=== PATIENT | male | born 1950 | race Two or more races ===

== ENCOUNTER 2017-08-31 12:48 | Inpatient (IN) | payer MEDICARE, MEDICAID ==
[~2017-08-31] VITALS: Ht 152.4 cm; Wt 68.9 kg
[2017-08-31] MEDS ORDERED: FURO-144 PO (13:28)
[2017-08-31] MEDS ORDERED: HYDR-4076 PO (13:28)
[2017-08-31] MEDS ORDERED: INSU100V3 SQ (13:28)
[2017-08-31] MEDS ORDERED: DEXT15DR6 EACHEYE (13:28)
[2017-08-31] MEDS ORDERED: ISOS30TA6 PO (13:28)
[2017-08-31] MEDS ORDERED: CARV25TA2 PO (13:28)
[2017-08-31] MEDS ORDERED: LATA2.5D2 EACHEYE (13:28)
[2017-08-31] MEDS ORDERED: BRIM5DRO EACHEYE (13:28)
[2017-08-31] MEDS ORDERED: DICY10CA59 PO (13:28)
[2017-08-31] MEDS ORDERED: ASPI81TA2 PO (13:28)
[2017-08-31] MEDS ORDERED: DORZ10DR13 EACHEYE (13:28)
[2017-08-31] MEDS ORDERED: ATOR80TA PO (13:28)
[2017-08-31] MEDS ORDERED: MULT-213 PO (13:28)
[2017-08-31] MEDS ORDERED: ACET-868 PO (13:28)
[2017-08-31] MEDS ORDERED: [UNRECOGNIZED DRUG - CODE] SQ (13:28)
[2017-08-31] MEDS ORDERED: DOCU-170 PO (13:28)
[2017-08-31] MEDS ORDERED: MAGN400O6 PO (13:28)
[2017-08-31] MEDS ORDERED: POLY119P2 PO (13:28)
[2017-08-31] MEDS ORDERED: INSU3INS6 SQ (13:28)
[2017-08-31] MEDS ORDERED: CRAN450C PO (13:28)
--- NOTE | 2017-08-31 15:03 | NUR ---
REPORT TO MAICOL KRUSE FOR CONT OF CARE
--- NOTE | 2017-08-31 15:30 | NUR ---
MS RN INITIAL NOTES PT ARRIVED TO FLOOR VIA GURNEY, FOR RESPIRATORY DISTRESS DUE TO SMOKE INHALATION. NO SIGNS OF SOB OR DISTRESS. BREATHING EVENLY AND UNLABORED ON RA. DENIES PAIN. SKIN ASSESSMENT COMPLETED. PICTURES ARE IN CHART AND DOCUMENTED. A/O X3 URUGUAYAN SPEAKING FROM SNF, ABLE TO MAKE NEEDS KNOWN. PT HAS BLINDNESS IN BOTH EYES. MED RECON COMPLETED. BED IS IN LOW AND LOCKED POSITION, CALL LIGHT IS WITHIN REACH. WILL CONTINUE TO MONITOR
[2017-08-31 15:35] VITALS: BP_SYST 152; BP_SYST 159; BP_DIAS 114; BP_DIAS 88
[2017-08-31] MEDS ORDERED: Z GUARD REMEDY 2 OZ OINT TP PRN (16:00)
[2017-08-31] MEDS ORDERED: ONDANSETRON HCL/PF 4 MG/2 ML VIAL IVP PRN (16:00)
[2017-08-31] MEDS ORDERED: ZOLPIDEM TARTRATE 5 MG TABLET PO PRN (16:00)
[2017-08-31] MEDS ORDERED: ACETAMINOPHEN 325 MG TABLET PO PRN (16:00)
[2017-08-31] MEDS ORDERED: MAGNESIUM HYDROXIDE 30 ML UDC PO PRN ×2 (16:00)
[2017-08-31] MEDS ORDERED: DEXTROSE 50%-WATER 50 ML DISP.SYRIN IV PRN (16:00)
[2017-08-31] MEDS ORDERED: DICYCLOMINE HCL 10 MG CAPSULE PO PRN (16:00)
[2017-08-31] MEDS ORDERED: MAG HYDROX/AL HYDROX/SIMETH 30 ML UDC PO PRN (16:00)
[2017-08-31] MEDS ORDERED: HYDROCODONE/APAP 5/325MG 1 EACH TABLET PO PRN (16:00)
[2017-08-31] MEDS: HEPARIN SODIUM, PORCINE 5000 UNITS/1 ML VIAL SQ SCH (17:00)
[2017-08-31] MEDS: DOCUSATE SODIUM 100 MG CAPSULE PO SCH (17:47)
[2017-08-31] MEDS: TIMOLOL MAL/DORZOLAM HCL OPHTH 10 ML BOTTLE EACHEYE SCH (17:47)
[2017-08-31] MEDS: BLOOD SUGAR DIAGNOSTIC 1 EACH STRIP VI SCH ×2 (17:47→21:53)
--- NOTE | 2017-08-31 18:10 | NUR ---
MS RN NOTES HELD HEPARIN DUE TO NO LABS
--- NOTE | 2017-08-31 18:15 | NUR ---
MS RN NOTES PAGED DR MUIR FOR LABS, AWAITING RESPONSE
--- NOTE | 2017-08-31 18:40 | NUR ---
MS RN CLOSING NOTES PT IS IN BED RESTING, NO ACUTE CHANGES. LABS TO BE DRAWN IN AM. WILL ENDORSE TO DAY SHIFT
--- NOTE | 2017-08-31 19:30 | NUR ---
MSRN FULLY AWAKE, NO RESPIRATORY DISTRESS. FAMILY VERY SUPPORTIVE, AT BEDSIDE. NO NEEDS FOR NOW. KEPT COMFORTABLE.
[2017-08-31 20:09] VITALS: BP 167/80
[2017-08-31 20:16] VITALS: BP 167/88
[2017-08-31] MEDS: BRIMONIDINE TARTRATE OPHT SOLN 5 ML BOTTLE EACHEYE SCH (21:00)
[2017-08-31] MEDS: LATANOPROST EYE DROP 0.005% 2.5 ML BOTTLE EACHEYE SCH (21:51)
[2017-08-31] MEDS: hydrALAZINE HCL 25 MG TABLET PO SCH (21:52)
[2017-08-31] MEDS: CARVEDILOL 12.5 MG TABLET PO SCH (21:52)
[2017-08-31] MEDS: ATORVASTATIN 40 MG TABLET PO SCH (21:53)
[2017-08-31] MEDS: INSULIN DETEMIR 100 UNIT/ML CARTRIDGE SQ SCH (21:54)
--- NOTE | 2017-08-31 22:33 | NUR ---
AAMIR BS 68, HELD [facility].
[2017-09-01] MEDS: BRIMONIDINE TARTRATE OPHT SOLN 5 ML BOTTLE EACHEYE SCH ×3 (05:00→22:20)
[2017-09-01] MEDS: BLOOD SUGAR DIAGNOSTIC 1 EACH STRIP VI SCH ×4 (05:47→22:23)
[2017-09-01] MEDS: hydrALAZINE HCL 25 MG TABLET PO SCH ×3 (05:50→22:22)
--- NOTE | 2017-09-01 06:00 | NUR ---
MSRN BS 75, DUE MEDS GIVEN WITH ORANGE JUICE. PATIENT MOVED TO ROOM 314-2 VIA BED.
[2017-09-01 06:40] VITALS: BP 161/82
[2017-09-01 08:00] VITALS: BP 149/73
--- NOTE | 2017-09-01 08:43 | NUR ---
RN OPENING NOTES RECEIVED PATIENT RESTING COMFORTABLY IN BED. EASILY AROUSABLE. AOX3. DENIES SOB, CP OR ANY PAIN AT THIS TIME. RESPIRATIONS EVEN AND UNLABORED. NO ACUTE DISTRESS NOTED. NO IV ACCESS. PATIENT BLIND. BED LOCKED IN THE LOWEST POSITION WITH SIDE RAILS UP X2. CALL LIGHT WITHIN REACH. WILL CONTINUE TO MONITOR ASSESS AND EDUCATE PATIENT THROUGHOUT SHIFT.
[2017-09-01] MEDS ORDERED: Medication Not On Formulary EA (Cranberry Fruit Concentrate (Cranberry) 900 MG) PO SCH (09:00)
[2017-09-01] MEDS: HEPARIN SODIUM, PORCINE 5000 UNITS/1 ML VIAL SQ SCH (09:00)
[2017-09-01] MEDS: MULTIVIT, IRON, MIN NO. 8, FA 1 TAB PO SCH (09:16)
[2017-09-01] MEDS: POLYETHYLENE GLYCOL 3350 17 GM POWD.PACK PO SCH (09:16)
[2017-09-01] MEDS: FUROSEMIDE 40 MG TABLET PO SCH (09:16)
[2017-09-01] MEDS: DOCUSATE SODIUM 100 MG CAPSULE PO SCH ×2 (09:17→18:02)
[2017-09-01] MEDS: ASPIRIN 81 MG TAB.CHEW PO SCH (09:17)
[2017-09-01] MEDS: CARVEDILOL 12.5 MG TABLET PO SCH ×2 (09:18→22:21)
[2017-09-01] MEDS: ISOSORBIDE MONONITRATE (30MG) 30 MG TAB.SR.24H PO SCH (09:18)
--- NOTE | 2017-09-01 09:23 | NUR ---
RN NOTES HEPARIN HELD. NO LABS COMPLETED.
[2017-09-01 09:59] LABS: BASOPHILS # (AUTO) 0.1 /CMM (0.0-0.2); EOSINOPHILS # (AUTO) 0.1 /CMM (0.0-0.7); EOSINOPHILS % (AUTO) 1.1 % (0.0-6.0); HEMATOCRIT 31 % (39-51); HEMOGLOBIN 9.9 g/dL (13.5-17.5); LYMPHOCYTES # (AUTO) 0.6 /CMM (0.8-4.8); MEAN CORPUSCULAR HEMOGLOBIN 32 PG (26.0-33.0); MEAN CORPUSCULAR HGB CONC 32 g/dl (31.0-36.0); MEAN CORPUSCULAR VOLUME 100 fL (80-96); MONOCYTES # (AUTO) 0.4 /CMM (0.1-1.30); MONOCYTES % (AUTO) 7.5 % (2.0-12.0); NEUTROPHILS # (AUTO) 4.6 /CMM (1.8-8.9); NEUTROPHILS % (AUTO) 79.4 % (43.0-81.0); PLATELET COUNT (AUTO) 158 /CMM (150-450); RDW COEFFICIENT OF VARIATION 15.5 (11.5-15.0); WHITE BLOOD COUNT (AUTO) 5.8 K/uL (4.3-11.0)
[2017-09-01 10:21] LABS: CALCIUM, SERUM 8.8 mg/dL (8.5-10.1); CREATININE 2.5 mg/dL (0.6-1.3); MAGNESIUM 2.2 mg/dL (1.8-2.4); PHOSPHORUS 4.2 mg/dL (2.5-4.9); POTASSIUM 4.3 mmol/L (3.5-5.1)
[2017-09-01] MEDS: TIMOLOL MAL/DORZOLAM HCL OPHTH 10 ML BOTTLE EACHEYE SCH ×2 (12:47→18:02)
--- NOTE | 2017-09-01 12:55 | NUR ---
WOUND CARE CONSULT: PT PRESENTS WITH INTACT SKIN AND SCARRING/STAINING OF SACRAL AREA. PT HAS BK STUMP. ALL SKIN PROTECTION MEASURES IN PLACE AND DISCUSSED WITH NURSING STAFF. WILL SEE PRN. HAYES IN AGREEMENT WITH PLAN OF CARE. Addendum: 09/01/17 at 1257 by MIKHAIL MORENO WNDNU Amended: Links added.
[2017-09-01] MEDS: INSULIN REGULAR, HUMAN 100 UNIT/ML 3 ML VIAL SQ PRN (13:02)
[2017-09-01 16:00] VITALS: BP 157/84
--- NOTE | 2017-09-01 19:00 | NUR ---
RN NOTES PATIENT CARE CONTINUED INTO NEXT 12 HRS.
[2017-09-01 20:00] VITALS: BP 153/77
--- NOTE | 2017-09-01 21:01 | NUR ---
RN NON ADMIN NOTES Addendum: 09/01/17 at 2101 by DELGADO HE RN URIAH NON ADMIN NOTES MEDICATION NOT BROUGHT FROM PHARMACY.
[2017-09-01] MEDS: INSULIN DETEMIR 100 UNIT/ML CARTRIDGE SQ SCH (22:00)
[2017-09-01] MEDS: ATORVASTATIN 40 MG TABLET PO SCH (22:21)
[2017-09-01] MEDS: LATANOPROST EYE DROP 0.005% 2.5 ML BOTTLE EACHEYE SCH (22:22)
--- NOTE | 2017-09-01 22:25 | NUR ---
RN NOTES BS 103. ALLAN FRANCISCO.
[2017-09-02] MEDS: HEPARIN SODIUM, PORCINE 5000 UNITS/1 ML VIAL SQ SCH ×3 (01:29→21:00)
--- NOTE | 2017-09-02 01:30 | NUR ---
RN NOTES OKAY TO GIVE HEPARIN DOSE WITHOUT PTT PER DR. SUMMERS.
[2017-09-02] MEDS: hydrALAZINE HCL 25 MG TABLET PO SCH ×3 (05:52→21:56)
[2017-09-02] MEDS: BRIMONIDINE TARTRATE OPHT SOLN 5 ML BOTTLE EACHEYE SCH ×3 (05:52→21:54)
[2017-09-02 07:13] LABS: BASOPHILS % (AUTO) 0.3 % (0.0-2.0); EOSINOPHILS % (AUTO) 0.7 % (0.0-6.0); HEMATOCRIT 31 % (39-51); HEMOGLOBIN 9.8 g/dL (13.5-17.5); LYMPHOCYTES # (AUTO) 0.7 /CMM (0.8-4.8); LYMPHOCYTES % (AUTO) 12.3 % (20.0-44.0); MEAN CORPUSCULAR HEMOGLOBIN 32 PG (26.0-33.0); MEAN CORPUSCULAR HGB CONC 32 g/dl (31.0-36.0); MEAN CORPUSCULAR VOLUME 100 fL (80-96); MONOCYTES # (AUTO) 0.4 /CMM (0.1-1.30); MONOCYTES % (AUTO) 6.9 % (2.0-12.0); NEUTROPHILS # (AUTO) 4.3 /CMM (1.8-8.9); NEUTROPHILS % (AUTO) 79.8 % (43.0-81.0); PLATELET COUNT (AUTO) 149 /CMM (150-450); RDW COEFFICIENT OF VARIATION 15.6 (11.5-15.0); RED BLOOD CELL COUNT(AUTO) 3.06 MIL/uL (4.5-6.0); WHITE BLOOD COUNT (AUTO) 5.4 K/uL (4.3-11.0)
--- NOTE | 2017-09-02 07:15 | NUR ---
RN CLOSING NOTES PATIENT RESTING COMFORTABLE IN BED. AOX3 ARABIC SPEAKING. BLIND IN BOTH EYES. NO IV ACCESS. SATURATING WELL ON RA. RESPIRATIONS EVEN AND UNLABORED. NO ACUTE DISTRESS. DENIES SOB, CP AND ANY FORM OF PAIN. ALL NEEDS MET, ALL MEDS GIVEN APPROPRIATE THROUGHOUT 24HRS. BED LOCKED IN THE LOWEST POSITION. SIDE RAILS UP X2. WILL ENDORSE TO MORNING SHIFT RN FOR SARA.
--- NOTE | 2017-09-02 07:30 | NUR ---
MS RN RECEIVED ON BED, AWAKE,ALERT,ORIENTED X2-3, NOT IN ANY FORM OF DISTRESS, RESPIRATIONS EVEN AND UNLABORED, NO SOB NOTED. LUNGS ARE CLEAR,ABDOMEN SOFT,POSITIVE BOWEL SOUNDS, DENIES PAIN A THIS TIME, INDONESIAN SPEAKING ABRIL,WILL CONTINUE TO MONITOR PATIENT.
[2017-09-02 07:33] LABS: ALBUMIN 2.5 g/dL (3.4-5.0); BILIRUBIN,TOTAL 0.5 mg/dL (0.2-1.0); CALCIUM, SERUM 8.7 mg/dL (8.5-10.1); CREATININE 2.5 mg/dL (0.6-1.3); MAGNESIUM 2.1 mg/dL (1.8-2.4); POTASSIUM 4.2 mmol/L (3.5-5.1); TOTAL PROTEIN, SERUM 5.8 g/dL (6.4-8.2)
[2017-09-02] MEDS: BLOOD SUGAR DIAGNOSTIC 1 EACH STRIP VI SCH ×4 (07:50→22:01)
[2017-09-02 08:00] VITALS: BP 159/82
--- NOTE | 2017-09-02 09:20 | NUR ---
MS RN BREAKFAST SERVED,DUE MEDS GIVEN,TOLERATWED WELL. ALL NEEDS ATTENDED.
[2017-09-02 09:47] LABS: IRON, SERUM 46 ug/dl (50-175); TOTAL IRON BINDING CAPACITY 235 ug/dl (250-450)
[2017-09-02 10:00] LABS: FERRITIN 97 ng/mL (8-388)
[2017-09-02] MEDS: MULTIVIT, IRON, MIN NO. 8, FA 1 TAB PO SCH (10:16)
[2017-09-02] MEDS: FUROSEMIDE 40 MG TABLET PO SCH (10:16)
[2017-09-02] MEDS: DOCUSATE SODIUM 100 MG CAPSULE PO SCH ×2 (10:16→17:00)
[2017-09-02] MEDS: ISOSORBIDE MONONITRATE (30MG) 30 MG TAB.SR.24H PO SCH (10:17)
[2017-09-02] MEDS: ASPIRIN 81 MG TAB.CHEW PO SCH (10:17)
[2017-09-02] MEDS: CARVEDILOL 12.5 MG TABLET PO SCH ×2 (10:18→21:57)
[2017-09-02] MEDS: POLYETHYLENE GLYCOL 3350 17 GM POWD.PACK PO SCH (10:18)
[2017-09-02] MEDS: TIMOLOL MAL/DORZOLAM HCL OPHTH 10 ML BOTTLE EACHEYE SCH ×2 (10:36→17:40)
--- NOTE | 2017-09-02 11:30 | NUR ---
MS RN WAS SEEN BY DR. JAIRO Thompson/ ORDERS MADE AND CARRIED OUT.
--- NOTE | 2017-09-02 11:50 | NUR ---
MS RN WAS SEEN BY DR. DUNN, AWAITING FOR ORDERS.
[2017-09-02 16:00] VITALS: BP 172/87
--- NOTE | 2017-09-02 17:58 | NUR ---
MS RN ON BED,NO CHANGE OF CONDITION.
[2017-09-02] MEDS: INSULIN REGULAR, HUMAN 100 UNIT/ML 3 ML VIAL SQ PRN (18:37)
--- NOTE | 2017-09-02 19:20 | NUR ---
RN OPEN NOTES RECEIVED PATIENT AWAKE IN BED WITH FAMILY AT BEDSIDE. A/O X3. NO SIGNS OF DISTRESS OR DISCOMFORT. BREATHING EVEN AND UNLABORED. NO IV ACCESS AT THIS TIME, MD AWARE. BED IN LOW LOCKED POSITION WITH SIDE RAILS X3. CALL LIGHT WITHIN REACH. WILL CONTINUE TO MONITOR.
[2017-09-02 20:00] VITALS: BP 166/83
--- NOTE | 2017-09-02 21:00 | NUR ---
RN NOTES DID NOT ADMINISTER HEPARIN 5,000 UNITS ORDERED, DUE TO LOW PLT OF 149. WILL CONTINUE TO MONITOR.
[2017-09-02] MEDS: ATORVASTATIN 40 MG TABLET PO SCH (21:53)
[2017-09-02] MEDS: LATANOPROST EYE DROP 0.005% 2.5 ML BOTTLE EACHEYE SCH (21:54)
[2017-09-02] MEDS: *INSULIN REGULAR(HUMULIN R)HUM 100 UNIT/ML VIAL SQ PRN (22:00)
[2017-09-02] MEDS ORDERED: INSULIN DETEMIR 100 UNIT/ML CARTRIDGE SQ ONE (22:34)
[2017-09-02] MEDS: INSULIN DETEMIR 100 UNIT/ML CARTRIDGE SQ SCH (23:14)
[2017-09-03 05:31] LABS: APPEARANCE,URINE CLEAR (CLEAR); BILIRUBIN,URINE NEGATIVE (NEGATIVE); BLOOD, URINE NEGATIVE Ery/uL (NEGATIVE); COLOR,URINE YELLOW (YELLOW); KETONES,URINE NEGATIVE (NEGATIVE); LEUKOCYTE ESTERASE ,URINE NEGATIVE (NEGATIVE); NITRITE, URINE NEGATIVE (NEGATIVE); PROTEIN,URINE 2+ mg/dl (NEGATIVE); UGLUCOSE TRACE mg/dL (NEGATIVE); UROBILINOGEN,URINE 0.2 EU/dL (0.2)
[2017-09-03 05:37] LABS: BACTERIA,URINE 2+ /HPF (None Seen); RBC,URINE 0-2 /HPF (0-2); SQUAMOUS EPITHELIAL CELL,UR Few /HPF (None Seen); WBC,URINE 0-2 /HPF (0-3)
[2017-09-03 05:38] LABS: CREATININE, URINE 38.1 MG/DL (30.0-125.0); URINE TOTAL PROTEIN 405.9 mg/dL (0-11.9)
[2017-09-03] MEDS: BRIMONIDINE TARTRATE OPHT SOLN 5 ML BOTTLE EACHEYE SCH ×2 (05:52→12:07)
[2017-09-03] MEDS: hydrALAZINE HCL 25 MG TABLET PO SCH ×2 (05:52→12:04)
[2017-09-03 06:14] LABS: EOSINOPHIL,URINE None Seen
[2017-09-03] MEDS: BLOOD SUGAR DIAGNOSTIC 1 EACH STRIP VI SCH ×3 (06:55→17:11)
[2017-09-03 07:41] LABS: CALCIUM, SERUM 8.8 mg/dL (8.5-10.1); CREATININE 2.5 mg/dL (0.6-1.3); POTASSIUM 4.4 mmol/L (3.5-5.1)
--- NOTE | 2017-09-03 07:42 | NUR ---
MS RN OPENING NOTES RECEIVED PT ASLEEP IN BED, AWAKENS EASILY. HOB ELEVATED. A/O X 3, SAME ABLE TO MAKE NEEDS KNOWN, DENIES PAIN OR DISCOMFORTS AT THIS TIME. ON ROOM AIR, RESPIRATION IS EVEN AND UNLABORED. BED IN LOW, LOCKED POSITION WITH SIDE-RAILS UP APPROPRIATE. CALL LIGHT WITHIN REACH. WILL CONTINUE TO MONITOR ACCORDINGLY.
--- NOTE | 2017-09-03 07:42 | NUR ---
RN CLOSING NOTES PATIENT AWAKE IN BED. A/O X3. NO SIGNS OF DISTRESS OR DISCOMFORT. BREATHING EVEN AND UNLABORED. NO IV ACCESS AT THIS TIME, MD AWARE. ALL NEEDS MET. NO SIGNIFICANT CHANGES THROUGH THE NIGHT. BED IN LOW LOCKED POSITION WITH SIDE RAILS X3. CALL LIGHT WITHIN REACH. ENDORSED TO AM SHIFT FOR SARA.
[2017-09-03 07:49] LABS: BASOPHILS % (AUTO) 0.2 % (0.0-2.0); EOSINOPHILS # (AUTO) 0.1 /CMM (0.0-0.7); EOSINOPHILS % (AUTO) 1.6 % (0.0-6.0); HEMATOCRIT 30 % (39-51); LYMPHOCYTES # (AUTO) 0.6 /CMM (0.8-4.8); LYMPHOCYTES % (AUTO) 10.7 % (20.0-44.0); MEAN CORPUSCULAR HEMOGLOBIN 33 PG (26.0-33.0); MEAN CORPUSCULAR HGB CONC 33 g/dl (31.0-36.0); MEAN CORPUSCULAR VOLUME 99 fL (80-96); MONOCYTES # (AUTO) 0.4 /CMM (0.1-1.30); MONOCYTES % (AUTO) 7.2 % (2.0-12.0); NEUTROPHILS # (AUTO) 4.6 /CMM (1.8-8.9); NEUTROPHILS % (AUTO) 80.3 % (43.0-81.0); PLATELET COUNT (AUTO) 153 /CMM (150-450); RDW COEFFICIENT OF VARIATION 15.2 (11.5-15.0); RED BLOOD CELL COUNT(AUTO) 3.06 MIL/uL (4.5-6.0); WHITE BLOOD COUNT (AUTO) 5.8 K/uL (4.3-11.0)
[2017-09-03 08:00] VITALS: BP_SYST 140; BP_SYST 142; BP_DIAS 72; BP_DIAS 81
[2017-09-03] MEDS: ASPIRIN 81 MG TAB.CHEW PO SCH (08:32)
[2017-09-03] MEDS: ISOSORBIDE MONONITRATE (30MG) 30 MG TAB.SR.24H PO SCH (08:32)
[2017-09-03] MEDS: FUROSEMIDE 40 MG TABLET PO SCH (08:33)
[2017-09-03] MEDS: CARVEDILOL 12.5 MG TABLET PO SCH (08:33)
[2017-09-03] MEDS: DOCUSATE SODIUM 100 MG CAPSULE PO SCH ×2 (08:33→17:11)
[2017-09-03] MEDS: POLYETHYLENE GLYCOL 3350 17 GM POWD.PACK PO SCH (08:33)
[2017-09-03] MEDS: MULTIVIT, IRON, MIN NO. 8, FA 1 TAB PO SCH (08:33)
[2017-09-03] MEDS: HEPARIN SODIUM, PORCINE 5000 UNITS/1 ML VIAL SQ SCH (08:34)
[2017-09-03] MEDS: TIMOLOL MAL/DORZOLAM HCL OPHTH 10 ML BOTTLE EACHEYE SCH ×2 (08:44→17:12)
[2017-09-03] MEDS: *INSULIN REGULAR(HUMULIN R)HUM 100 UNIT/ML VIAL SQ PRN (12:06)
[2017-09-03 13:25] LABS: PTH, INTACT 59 pg/mL (15-65)
[2017-09-03 16:00] VITALS: BP 151/78
--- NOTE | 2017-09-03 18:53 | NUR ---
RN DISCHARGED NOTES PATIENT DISCHARGED TO [facility] IN STABLE CONDITION. REPORT GIVEN TO CHARGE NURSE EDWARD. PT LEFT UNIT VIA GURNEY ACCOMPANIED BY EMT CREW AT 1845H. A/O X 3, NO ACUTE SIGNS OF DISTRESS NOTED ON DISCHARGED. V/S CHECKED AND RECORDED. PHOTO OF SKIN TAKEN AND FILED ON CHART. NO BELONGINGS BROUGHT WHEN HE WAS ADMITTED. HEALTH TEACHINGS GIVEN AND VERBALIZED UNDERSTANDING. MD AND CHARGE NURSE AWARE OF DISCHARGE.
[2017-09-04] MEDS ORDERED: CALC-838 PO (14:01)
[2017-09-06 08:07] LABS: *SPE ALBUMIN 2.7 g/dL (2.9-4.4); *SPE ALPHA-1-GLOBULIN 0.2 g/dL (0.0-0.4); *SPE ALPHA-2-GLOBULIN 0.6 g/dL (0.4-1.0); *SPE BETA GLOBULIN 0.7 g/dL (0.7-1.3); *SPE GLOBULIN, TOTAL 2.6 g/dL (2.2-3.9); *SPE M-SPIKE Not Observed g/dL (Not Observed); *SPEGAMMA GLOBULIN 1.1 g/dL (0.4-1.8)
== END 2017-09-03 18:52 | DRG 917 ==
LOC: ER 12:49 → EDBD 12:49 → MED 16:07
PROVIDERS: ADMIT Internal Medicine; ATTEND Internal Medicine
DX: T59.811A Toxic effect of smoke, accidental (unintentional), initial encounter (principal); J96.01 Acute respiratory failure with hypoxia; G92 Toxic encephalopathy; N17.9 Acute kidney failure, unspecified; I13.0 Hypertensive heart and chronic kidney disease with heart failure and stage 1 through stage 4 chronic kidney disease, or unspecified chronic kidney disease; J70.5 Respiratory conditions due to smoke inhalation; E11.22 Type 2 diabetes mellitus with diabetic chronic kidney disease; E78.5 Hyperlipidemia, unspecified; F03.90 Unspecified dementia, unspecified severity, without behavioral disturbance, psychotic disturbance, mood disturbance, and anxiety; I50.9 Heart failure, unspecified; N18.9 Chronic kidney disease, unspecified; N40.0 Benign prostatic hyperplasia without lower urinary tract symptoms; Z79.4 Long term (current) use of insulin; Z79.899 Other long term (current) drug therapy; Z89.512 Acquired absence of left leg below knee; Y92.129 Unspecified place in nursing home as the place of occurrence of the external cause; R53.1 Weakness; E11.51 Type 2 diabetes mellitus with diabetic peripheral angiopathy without gangrene
CPT/HCPCS: 36415; 80048-TC; 80053-TC; 81000-TC; 82306; 82570-TC; 82652; 82728-TC; 82962-TC; 83540-TC; 83735-TC; 83970; 84100-TC; 84155; 84155-TC; 84165; 84300-TC; 85025-TC; 87081-TC; 87086-TC; A4606; J1644; J1815; Z7610

== ENCOUNTER 2018-02-18 13:44 | Inpatient (IN) | payer MEDICARE, MEDICAID ==
[~2018-02-18] VITALS: Ht 152.4 cm; Wt 71.2 kg
[~2018-02-18 13:44] MED LIST: ACET-868 PO; ASPI-1169 PO; ATOR80TA PO; BRIM5DRO EACHEYE; CALC-838 PO; CARV25TA2 PO; CRAN450C PO; DEXT15DR6 EACHEYE; DICY10CA59 PO; DOCU100C36 PO; DORZ10DR13 EACHEYE; FURO-144 PO; HYDR-4076 PO; INSU100V3 SQ; INSU3INS6 SQ; ISOS30TA6 PO; LATA2.5D2 EACHEYE; MAGN400O6 PO; MULT-213 PO; POLY119P2 PO; [UNRECOGNIZED DRUG - CODE] SQ
--- NOTE | 2018-02-18 13:55 | NUR ---
[facility]IB [facility] C/O ABNORMAL LABS, ELEVAETD BUN AND CREATININE. PATIENT IS A/OX 1, BREATHING EVEN AND UNLABORED. NO SOB, NAD, VITALS STABLE. PATIENT HAS A LEFT BKA. SAFETY AND COMFORT MEASURES IN PLACE. AWAITING MD ORDERS.
[2018-02-18] MEDS ORDERED: HYDR-3974 PO (14:06)
[2018-02-18] MEDS ORDERED: MAG30ORA PO (14:06)
[2018-02-18] MEDS ORDERED: POLY15DR40 EACHEYE (14:06)
[2018-02-18] MEDS ORDERED: CHOL100044 PO (14:06)
[2018-02-18] MEDS ORDERED: LOPE2TAB25 PO (14:06)
[2018-02-18] MEDS ORDERED: ONDA4TAB10 PO (14:06)
[2018-02-18] MEDS ORDERED: BLOO-668 IN (14:07)
--- NOTE | 2018-02-18 14:30 | NUR ---
NEW IV STARTED ON RIGHT HAND, 20G. BLOOD DRAWN AND SENT TO LAB.
[2018-02-18 14:53] LABS: BASOPHILS % (AUTO) 0.6 % (0.0-2.0); EOSINOPHILS % (AUTO) 3.6 % (0.0-6.0); HEMATOCRIT 28 % (39-51); HEMOGLOBIN 9.3 g/dL (13.5-17.5); LYMPHOCYTES # (AUTO) 0.5 /CMM (0.8-4.8); LYMPHOCYTES % (AUTO) 10.5 % (20.0-44.0); MEAN CORPUSCULAR HGB CONC 33 g/dl (31.0-36.0); MEAN CORPUSCULAR VOLUME 94 fL (80-96); MONOCYTES # (AUTO) 0.3 /CMM (0.1-1.30); MONOCYTES % (AUTO) 6.9 % (2.0-12.0); NEUTROPHILS # (AUTO) 3.9 /CMM (1.8-8.9); NEUTROPHILS % (AUTO) 78.4 % (43.0-81.0); PLATELET COUNT (AUTO) 202 /CMM (150-450); RDW COEFFICIENT OF VARIATION 15.8 (11.5-15.0); RED BLOOD CELL COUNT(AUTO) 3.03 MIL/uL (4.5-6.0); WHITE BLOOD COUNT (AUTO) 4.9 K/uL (4.3-11.0)
[2018-02-18 14:59] LABS: CALCIUM, SERUM 7.8 mg/dL (8.5-10.1); CREATININE 2.7 mg/dL (0.6-1.3); POTASSIUM 4.3 mmol/L (3.5-5.1)
--- NOTE | 2018-02-18 16:06 | NUR ---
CALLED NURSING SUP. FOR TELE BED
--- NOTE | 2018-02-18 16:07 | NUR ---
[facility] PAGED, SINGER SONGWRITER
--- NOTE | 2018-02-18 16:24 | NUR ---
TELE 316-1 FOR RENAL FAILURE, ADMITTED BY
--- NOTE | 2018-02-18 16:40 | NUR ---
REPORT GIVEN TO CHIKIS GREENE FOR SARA UPON ADMISSION.
[2018-02-18 17:00] VITALS: BP 148/84
--- NOTE | 2018-02-18 17:00 | NUR ---
tele furnace fitter: admission admitted this 67 yr old male pt from [facility] with dx: chf. awake, a/ox3; legally blind, fijian speaking only with hx: left bka. imelda (greenhouse technician student) of dr. rosario made aware of polst dnr/dni status signed on 08/2017 with order of dnr/dni. noted with both arms discolorations with transparent dressing in place, but no skin tear noted when removed, handled with care. also noted with sdti on right heel, photo taken and place in charts and will defer to md. oriented to room and surroundings. tele sr=67. instructed to call for assistance. call light within reach. will continue to monitor.
--- NOTE | 2018-02-18 17:05 | NUR ---
PATIENT TRANSPORTED TO [facility] VIA ACLS PROTOCOL. RAMONA DIOP TO PROVIDE SARA.
[2018-02-18] MEDS ORDERED: ACETAMINOPHEN 325 MG TABLET PO PRN (17:30)
[2018-02-18] MEDS: BLOOD SUGAR DIAGNOSTIC 1 EACH STRIP IN SCH ×2 (17:30→21:48)
[2018-02-18] MEDS ORDERED: ZOLPIDEM TARTRATE 5 MG TABLET PO PRN (17:30)
[2018-02-18] MEDS ORDERED: Z GUARD REMEDY 2 OZ OINT TP PRN (17:30)
[2018-02-18] MEDS ORDERED: HYDROCODONE/APAP 5/325MG 1 EACH TABLET PO PRN ×2 (17:30)
[2018-02-18] MEDS: ASPIRIN 81 MG TAB.CHEW PO SCH (17:30)
[2018-02-18] MEDS: ISOSORBIDE MONONITRATE (30MG) 30 MG TAB.SR.24H PO SCH (17:30)
[2018-02-18] MEDS: CHOLECALCIFEROL 1,000 UNIT TABLET (VIT D3) PO SCH (17:30)
[2018-02-18] MEDS ORDERED: MAG HYDROX/AL HYDROX/SIMETH 30 ML UDC PO PRN ×2 (17:30)
[2018-02-18] MEDS ORDERED: DICYCLOMINE HCL 10 MG CAPSULE PO PRN (17:30)
[2018-02-18] MEDS ORDERED: ONDANSETRON HCL/PF 4 MG/2 ML VIAL IVP PRN (17:30)
[2018-02-18] MEDS ORDERED: MAGNESIUM HYDROXIDE 30 ML UDC PO PRN ×2 (17:30)
--- NOTE | 2018-02-18 17:30 | NUR ---
tele flight radio officer: notes noted with inguinal hernia and tender to touch. imelda (nonprofit financial controller student) with dr. rosario here and made aware.
[2018-02-18] MEDS ORDERED: ONDANSETRON 4 MG TAB.RAPDIS PO PRN (18:00)
[2018-02-18] MEDS: hydrALAZINE HCL 25 MG TABLET PO SCH ×2 (18:16→21:48)
[2018-02-18] MEDS: DOCUSATE SODIUM 100 MG CAPSULE PO SCH (18:17)
[2018-02-18] MEDS: ENOXAPARIN SODIUM 30 MG/0.3 ML DISP.SYRIN SQ SCH (18:22)
[2018-02-18] MEDS: TIMOLOL MAL/DORZOLAM HCL OPHTH 10 ML BOTTLE EACHEYE SCH ×2 (18:23→18:34)
--- NOTE | 2018-02-18 18:30 | NUR ---
tele digital content coordinator: notes pt voided 200 ml of giovanny colored urine using urinal per request. pt refused blood sugar check, stated, "no, no, no." needs attended. dinner ordered. tele sr=60's. call light within pt's reach and reminded prn on location.
[2018-02-18] MEDS: BRIMONIDINE TARTRATE OPHT SOLN 5 ML BOTTLE EACHEYE SCH (18:31)
--- NOTE | 2018-02-18 18:50 | NUR ---
tele system consultant: notes dinner served and being assist by insole buffer with hob elevated.
--- NOTE | 2018-02-18 18:55 | NUR ---
tele president: md visit dr. rosario at bedside and stopped the bilingual loan processor with his meal and want pt to have ct abdomen/pelvis wo stat: Reason for exam: <inguinal hernia, r/o incarceration. md wants the result called in to dr. armstrong (ironworker wire fence erector). report given to tj (rn) for continuity of care.
--- NOTE | 2018-02-18 19:03 | NUR ---
tele lab manager: notes rosina (grade recorder) called and will picking machine operator pt in 10 mins.
--- NOTE | 2018-02-18 19:45 | NUR ---
DRUG SAFETY PHYSICIAN NOTE: PATIENT RESTING IN BED, NO ACUTE DISTRESS NOTED. BREATHING EVEN AND UNLABORED, NO SOB NOTED. PATIENT BACK FROM CT WITHOUT COMPLICATION. BED LOCKED AND IN LOWEST POSITION, CALL LIGHT IN REACH. WILL CONTINUE TO MONITOR.
[2018-02-18 20:00] VITALS: BP 152/77
--- NOTE | 2018-02-18 21:10 | NUR ---
INTERNATIONAL EXCHANGE COORDINATOR NOTE: PATIENT MOVED TO ROOM 309-1, CLOSER TO NURSING STATION. NO ACUTE DISTRESS NOTED. BED LOCKED AND IN LOWEST POSITION, CALL LIGHT IN REACH. WILL CONTINUE TO MONITOR.
[2018-02-18] MEDS: LATANOPROST EYE DROP 0.005% 2.5 ML BOTTLE EACHEYE SCH (21:48)
[2018-02-18] MEDS: CARVEDILOL 12.5 MG TABLET PO SCH (21:49)
--- NOTE | 2018-02-18 22:30 | NUR ---
ORE MINER BLASTING NOTE: PATIENT BLOOD SUGAR LEVEL 185 MG/DL, PATIENT TO RECEIVE 15 UNITS OF LANTUS PER MD ORDER. NO S/S OF HYPER/HYPOGLYCEMIA NOTED. WILL CONTINUE TO MONITOR.
[2018-02-18] MEDS ORDERED: INSULIN GLARGINE, 100 UNIT/ML CARTRIDGE SQ ONE (22:38)
[2018-02-18] MEDS: INSULIN GLARGINE, 100 UNIT/ML CARTRIDGE SQ SCH (22:58)
--- NOTE | 2018-02-18 23:24 | NUR ---
RN NOTES: RECEIVED ENDORSEMENT FROM TORI FOR CONTINUITY OF CARE AT 4720.
[2018-02-19] VITALS: BP 143/76
--- NOTE | 2018-02-19 00:11 | NUR ---
RN NOTES: ASLEEP DURING NURSES ROUNDS, KEPT CALL LIGHT WITHIN EASY REACH, BED LOW AND LOCKED,ALARM ON AND FALL AND SAFETY PRECAUTION OBSERVED.
[2018-02-19] MEDS: BRIMONIDINE TARTRATE OPHT SOLN 5 ML BOTTLE EACHEYE SCH ×3 (01:45→16:56)
[2018-02-19 04:00] VITALS: BP 153/80
[2018-02-19] MEDS: hydrALAZINE HCL 25 MG TABLET PO SCH ×3 (05:12→21:44)
--- NOTE | 2018-02-19 05:20 | NUR ---
RN NOTES: BP-153/80 DUE MEDICATION GIVEN, COMPLAINED OF GENERALIZED MILD PAIN, PRN MEDICATION GIVEN PER PATIENT REQUEST, NON PHARMACOLOGIC INTERVENTION RENDERED.KEPT CALL LIGHT WITHIN EASY REACH.
[2018-02-19 06:19] LABS: BASOPHILS % (AUTO) 0.8 % (0.0-2.0); EOSINOPHILS % (AUTO) 3.8 % (0.0-6.0); HEMATOCRIT 29 % (39-51); HEMOGLOBIN 9.3 g/dL (13.5-17.5); LYMPHOCYTES # (AUTO) 0.6 /CMM (0.8-4.8); LYMPHOCYTES % (AUTO) 13.3 % (20.0-44.0); MEAN CORPUSCULAR HGB CONC 32 g/dl (31.0-36.0); MEAN CORPUSCULAR VOLUME 97 fL (80-96); MONOCYTES # (AUTO) 0.3 /CMM (0.1-1.30); MONOCYTES % (AUTO) 7.3 % (2.0-12.0); NEUTROPHILS # (AUTO) 3.3 /CMM (1.8-8.9); NEUTROPHILS % (AUTO) 74.8 % (43.0-81.0); PLATELET COUNT (AUTO) 186 /CMM (150-450); RDW COEFFICIENT OF VARIATION 16.5 (11.5-15.0); WHITE BLOOD COUNT (AUTO) 4.4 K/uL (4.3-11.0)
--- NOTE | 2018-02-19 06:25 | NUR ---
RN NOTES: ABLE TO SLEEP AND REST WELL IN THE NIGHT, MORNING CARE DONE, CLEAN AND CHANGE, BLOOD TEST DONE IN THE MORNING TO F/U RESULT,BED LOW AND LOCKED, CALL LIGHT WITHIN EASY REACH. ENDORSED FOR CONTINUITY OF CARE.
[2018-02-19 06:29] LABS: ALBUMIN 1.8 g/dL (3.4-5.0); BILIRUBIN,TOTAL 0.2 mg/dL (0.2-1.0); CALCIUM, SERUM 8.2 mg/dL (8.5-10.1); CREATININE 2.7 mg/dL (0.6-1.3); MAGNESIUM 1.7 mg/dL (1.8-2.4); PHOSPHORUS 3.3 mg/dL (2.5-4.9); POTASSIUM 4.1 mmol/L (3.5-5.1); TOTAL PROTEIN, SERUM 5.4 g/dL (6.4-8.2)
--- NOTE | 2018-02-19 07:00 | NUR ---
MAP AND CHART MOUNTER INITIAL NOTES: Received patient on bed with HOB elevated, asleep, but easily arousable. No SOB, no acute distress noted. IV on R hand g#20 SL. Alert/ Oriented x 4. No complaints of discomfort or pain as of this time. Call boyd within patient's reach. Bed in low/locked position. Patient in stable condition as endoresed by mini shifter RN. Addendum: 02/19/18 at 0754 by TRINH JEWELL RN Patient on TELE monitor [id number]
[2018-02-19 08:00] VITALS: BP 146/76
[2018-02-19] MEDS: TIMOLOL MAL/DORZOLAM HCL OPHTH 10 ML BOTTLE EACHEYE SCH ×2 (08:13→16:35)
[2018-02-19] MEDS: DOCUSATE SODIUM 100 MG CAPSULE PO SCH ×2 (08:13→16:35)
[2018-02-19] MEDS: ASPIRIN 81 MG TAB.CHEW PO SCH (08:13)
[2018-02-19] MEDS: CARVEDILOL 12.5 MG TABLET PO SCH ×2 (08:14→20:37)
[2018-02-19] MEDS: CHOLECALCIFEROL 1,000 UNIT TABLET (VIT D3) PO SCH (08:14)
[2018-02-19] MEDS: ISOSORBIDE MONONITRATE (30MG) 30 MG TAB.SR.24H PO SCH (08:15)
[2018-02-19] MEDS: BLOOD SUGAR DIAGNOSTIC 1 EACH STRIP IN SCH ×2 (08:25→21:40)
[2018-02-19] MEDS: Magnesium 1GM/D5W 100ML PREMIX 100 ML IV SCH ×2 (09:21→10:41)
[2018-02-19 10:05] LABS: IRON, SERUM 48 ug/dl (50-175); TOTAL IRON BINDING CAPACITY 184 ug/dl (250-450)
[2018-02-19 16:00] VITALS: BP 131/74
--- NOTE | 2018-02-19 19:17 | NUR ---
ms rn closing notes All needs provided, attended, and anticipated. Patient in stable condition. Endorsed to next shift RN to continue care. Call light with in patient reach.
--- NOTE | 2018-02-19 19:45 | NUR ---
RN MS OPENING NOTES RECEIVED PATIENT IN BED SLEEPING , BUT EASILY AROUSABLE, RESPIRATIONS EVEN AND UNLABORED WITH EQUAL RISE AND FALL OF CHEST, DENIES ANY PAIN OR DISCOMFORT AT THIS TIME, ORIENTED TO STAFF AND CALL LIGHT IN ALBANIAN , IV SITE TO RIGHT HAND #20 GAUGE INTACT AND PATENT , NO REDNESS, NO INFILTRATION PRESENT. CALL LIGHT KEPT WITHIN REACH. BED IN LOW POSITION , LOCKED, CALL ALARM INTACT, URINAL WITHIN REACH. FALL PRECAUTIONS IN PLACE, SAFETY MEASURES IN PLACE, FLUIDS OFFERED, ALL NEEDS ATTENDED AT THIS TIME, PATIENT REMAINS COMFORTABLE WILL CONTINUE TO MONITOR.
[2018-02-19 20:00] VITALS: BP 139/62
[2018-02-19] MEDS: ENOXAPARIN SODIUM 30 MG/0.3 ML DISP.SYRIN SQ SCH (20:39)
[2018-02-19] MEDS: LATANOPROST EYE DROP 0.005% 2.5 ML BOTTLE EACHEYE SCH (21:41)
[2018-02-19] MEDS: ATORVASTATIN 40 MG TABLET PO SCH (21:41)
[2018-02-19] MEDS: INSULIN GLARGINE, 100 UNIT/ML CARTRIDGE SQ SCH (21:54)
--- NOTE | 2018-02-19 21:55 | NUR ---
RN MS NOTES PATIENT REFUSED TOSHIA BS 107. STATING BLOOD SUGAR WILL DROP. FAMILY AT BEDSIDE ALSO REFUSING STATING " WE DONT WANT IT TO DROP, DONT GIVE IT"
[2018-02-20] MEDS: BRIMONIDINE TARTRATE OPHT SOLN 5 ML BOTTLE EACHEYE SCH ×3 (01:26→16:23)
[2018-02-20] MEDS: hydrALAZINE HCL 25 MG TABLET PO SCH ×3 (05:16→21:28)
--- NOTE | 2018-02-20 06:17 | NUR ---
RN MS NOTES PATIENT WEIGHED WITH BED SCALE. ALL PILLOWS AND EXTRA SHEETS REMOVED, SPR MOTOR REMOVED NOTED BED SCALE WEIGHT 158
--- NOTE | 2018-02-20 06:56 | NUR ---
RN MS CLOSING NOTES PATIENT IN BED SLEEPING , BUT EASILY AROUSABLE, RESPIRATIONS EVEN AND UNLABORED WITH EQUAL RISE AND FALL OF CHEST, DENIES ANY PAIN OR DISCOMFORT AT THIS TIME, IV SITE TO RIGHT HAND #20 GAUGE INTACT AND PATENT , NO REDNESS, NO INFILTRATION PRESENT. LEFT BKA SKIN INTACT REPOSITIONED, RIGHT HEEL DTI INTACT MEPILEX PLACED AND INTACT, SACRAL REDNESS INTACT MEPILEX AND Z GUARD PLACED AND INTACT, BUE NOTED WITH DISCOLORATIONS SKIN INTACT, CALL LIGHT KEPT WITHIN REACH. BED IN LOW POSITION , LOCKED, CALL ALARM INTACT, URINAL WITHIN REACH. FALL PRECAUTIONS IN PLACE, SAFETY MEASURES IN PLACE, FLUIDS OFFERED, ALL NEEDS ATTENDED AT THIS TIME, PATIENT REMAINS COMFORTABLE WILL CONTINUE TO MONITOR AND ENDORSE TO NEXT SHIFT.
--- NOTE | 2018-02-20 07:20 | NUR ---
RN OPEN NOTES RECEIVED REPORT AT BEDSIDE. PATIENT IS IN BED, ALERT AND ORIENTED TO NAME, TIME AND PLACE. NO SIGNS AND SYMPTOMS OF DISTRESS. DENIED PAIN. BED IN LOW POSITION, LOCKED AND TWO SIDE RAILS ARE UP. WOUND RN CONSULT PENDING. CALL LIGHT WITHIN REACH FOR SAFETY. WILL CONTINUE TO MONITOR AND ASSESS PATIENT THROUGH OUT MY SHIFT
[2018-02-20 08:00] VITALS: BP 139/74
[2018-02-20] MEDS: CHOLECALCIFEROL 1,000 UNIT TABLET (VIT D3) PO SCH (08:42)
[2018-02-20] MEDS: DOCUSATE SODIUM 100 MG CAPSULE PO SCH ×2 (08:42→16:23)
[2018-02-20] MEDS: ISOSORBIDE MONONITRATE (30MG) 30 MG TAB.SR.24H PO SCH (08:42)
[2018-02-20] MEDS: ASPIRIN 81 MG TAB.CHEW PO SCH (08:42)
[2018-02-20] MEDS: CARVEDILOL 12.5 MG TABLET PO SCH ×2 (08:43→21:28)
[2018-02-20] MEDS: BLOOD SUGAR DIAGNOSTIC 1 EACH STRIP IN SCH ×2 (08:44→21:00)
[2018-02-20] MEDS: TIMOLOL MAL/DORZOLAM HCL OPHTH 10 ML BOTTLE EACHEYE SCH ×2 (08:46→16:01)
--- NOTE | 2018-02-20 09:00 | NUR ---
BED SCALE SHOWS DIFFERENT WEIGHT FROM PREVIOUS DOCUMENTATION.
--- NOTE | 2018-02-20 09:00 | NUR ---
PATIENT REFUSING BLOOD SUGAR CHECK - DOES NOT WANT TO GET STICK
--- NOTE | 2018-02-20 10:05 | NUR ---
PATIENT REFUSING BLOOD DRAWN
--- NOTE | 2018-02-20 18:37 | NUR ---
RN CLOSING NOTES: PATIENT IS IN BED. AWAKE, ALERT AND ORIENTED TO NAME, PLACE AND TIME. RESPIRATIONS EVEN AND UNLABORED WITH EQUAL RISE AND FALL OF CHEST. NO SIGNS AND SYMPTOMS OF DISTRESS. DENIED PAIN. LEGALLY BLIND BOTH EYES. TOTAL ASSIST. CAN TURN HIM SELF IN BED INDEPENDENTLY. IV SITE IS INTACT AND PATENT - HL ONLY, NO REDNESS , NO INFILTRATION PRESENT. BED IN LOWEST POSITION, LOCKED AND TWO SIDE RAILS ARE UP FOR SAFETY. CALL LIGHT WITHIN REACH FOR SAFETY. ALL NURSING CARE ANTICIPATED AND ATTENDED FOR. PATIENT KEPT CLEAN, DRY AND SAFE. URINAL AT BEDSIDE PERINEAL CARE PROVIDED. BED LINENS AND GOWN CHANGED. PT ABLE TO SELF REPOSITION. FALL PRECAUTIONS IN PLACE, SAFETY MEASURES IN PLACE, FLUIDS OFFERED TOLERATED. WILL ENDORSE TO ELECTRIC MELT OPERATOR RN FOR SARA.
--- NOTE | 2018-02-20 19:20 | NUR ---
RN INITIAL NOTES: RECEIVED REPORT FROM MITRA KRUSE, PT IN BED, AWAKE, A/O X3 ANGOLAN SPEAKING, ON RA RESPIRATION EVEN AND UNLABORED. PT C/O FEELING SORE ON ARMS AND LEFT BKA STUMP, NOTED TO BE SWOLLEN. PT IV ACCESS PATENT AND FLUSHING WELL, NOTED DRIED BLOOD AROUND DRESSING, PT REFUSING TO BE POKE AGAIN AND REFUSING FOR BLOOD DRAW, MD AWARE, ACCU CHECK WILL ONLY BE DONE ONCE PER SHIFT. RLE ELEVATED ON PILLOWS. PT LEGALLY BLIND BOTH EYES, 2 URINALS PLACED WITHIN REACH, ALSO PT REQUESTED FOR DIAPER HE STATED THAT HE FELT UNCOMFORTABLE NOT HAVING ANY UNDERWEAR OR DIAPER, TRANSLATED ANGOLAN SPORTS MEDICINE SPECIALIST. SAFETY PRECAUTIONS FOR FALL INITIATED, CALL LIGHT IN REACH, WILL CONTINUE MONITORING PT.
[2018-02-20 20:00] VITALS: BP 168/88
[2018-02-20] MEDS: ENOXAPARIN SODIUM 30 MG/0.3 ML DISP.SYRIN SQ SCH (21:00)
[2018-02-20 21:25] VITALS: BP 176/96
[2018-02-20] MEDS: ATORVASTATIN 40 MG TABLET PO SCH (21:29)
[2018-02-20] MEDS: LATANOPROST EYE DROP 0.005% 2.5 ML BOTTLE EACHEYE SCH (21:31)
[2018-02-20] MEDS: INSULIN GLARGINE, 100 UNIT/ML CARTRIDGE SQ SCH (21:55)
--- NOTE | 2018-02-20 21:55 | NUR ---
REFUSAL FOR BLOOD SUGAR CHECK, LOVENOX: INFORMED PT ABOUT BLOOD SUGAR CHECK, PT REFUSED, STATED HE'S FINGERS AREA FEELING SORE, AND HE DOESNT WANT ANY BLOOD SUGAR CHECK, SOLA INFORMED ABOUT LOVENOX SCHEDULED FOR TONIGHT BUT PT ALSO REFUSED, STATED HE ALREADY RECEIVED IT AND DOESNT WANT ANOTHER ONE. EXPLAINED TO THE PT IMPORTANCE OF MEDICATION COMPLIANCE, BLOOD SUGAR CHECK SINCE HE'S DIABETIC AND LOVENOX TO HELP PREVENT BLOOD CLOT FORMATION, RISK AND BENEFITS BUT PT INSISTED TO REFUSED WITH THE TREATMENT. SHARAN OZUNA WHO CAN SPEAK AND UNDERSTAND UZBEK WAS THERE TO TRANSLATE AND BETHE WITNESS. SINCE PT REFUSING BLOOD SUGAR CHECK, I DIDNT GIVE THE LANTUS I DO NOT KNOW WHAT IS THE BLOOD SUGAR OF THE PT. ALSO, APPLE JUICE AND CRANBERRY JUICE WAS PROVIDED TO THE PT, DRINK THE JUICE 100%.
[2018-02-20 23:00] VITALS: BP 146/85
[2018-02-21] MEDS: BRIMONIDINE TARTRATE OPHT SOLN 5 ML BOTTLE EACHEYE SCH ×3 (02:07→17:30)
[2018-02-21] MEDS: hydrALAZINE HCL 25 MG TABLET PO SCH ×3 (05:00→17:20)
[2018-02-21 05:14] VITALS: BP_SYST 92; BP_DIAS 62; BP_DIAS 66
--- NOTE | 2018-02-21 05:16 | NUR ---
NON ADMIN OF HYDRALAZINE 75 MG TAB: VS TAKEN AND RECORDED, BP 92/66 HR 62, PLEASE SEE VS LOG FOR INFO, APRESOLINE 75MG TAB NOT ADMINISTERED AT THIS TIME, PER CLINICAL JUDGMENT, POSSIBLE RISK OF HYPOTENSION
--- NOTE | 2018-02-21 06:44 | NUR ---
RN CLOSING NOTES: PT IN BED,AWAKE, REMAINS ON RA RESPIRATION EVEN AND UNLABORED. PT REFUSED BLOOD DRAW AND ACCU CHECK.VS REMAINS STABLE, BUE AND BLE OFFLOADED. REFUSED IV REINSERTION. SAFETY PRECAUTIONS FOR FALL REMAINS ENGAGED, CALL LIGHT IN REACH, WILL ENDORSE TO DAY RN FOR SARA.
--- NOTE | 2018-02-21 07:31 | NUR ---
RN OPENING NOTES RECEIVED PT. PT IS STABLE AND RESTING IN BED. NO S/S OF RESP DISTRESS OR SOB, PT IS ON RA. DOES NOT APPEAR TO BE IN PAIN AT THIS TIME. PER BLADE GRINDER REPORT, PT HAS REFUSED ALL TX THAT INVOLVE NEEDLESTICKS, INCLUDING ROUTINE ACCUCHECK, WILL F/U WITH . SAFETY MEASURES IN PLACE, CALL LIGHT WITHIN REACH. WILL CONTINUE TO MONITOR.
[2018-02-21 08:00] VITALS: BP 153/86
[2018-02-21 09:00] VITALS: BP 153/86
[2018-02-21] MEDS: CHOLECALCIFEROL 1,000 UNIT TABLET (VIT D3) PO SCH (09:03)
[2018-02-21] MEDS: ASPIRIN 81 MG TAB.CHEW PO SCH (09:03)
[2018-02-21] MEDS: ISOSORBIDE MONONITRATE (30MG) 30 MG TAB.SR.24H PO SCH (09:03)
[2018-02-21] MEDS: TIMOLOL MAL/DORZOLAM HCL OPHTH 10 ML BOTTLE EACHEYE SCH ×2 (09:03→17:00)
[2018-02-21] MEDS: CARVEDILOL 12.5 MG TABLET PO SCH (09:04)
[2018-02-21] MEDS: DOCUSATE SODIUM 100 MG CAPSULE PO SCH ×2 (09:04→17:00)
[2018-02-21] MEDS: BLOOD SUGAR DIAGNOSTIC 1 EACH STRIP IN SCH (09:17)
[2018-02-21 15:13] LABS: BASOPHILS % (AUTO) 0.9 % (0.0-2.0); EOSINOPHILS % (AUTO) 2.5 % (0.0-6.0); HEMATOCRIT 27 % (39-51); LYMPHOCYTES # (AUTO) 0.8 /CMM (0.8-4.8); LYMPHOCYTES % (AUTO) 15.8 % (20.0-44.0); MEAN CORPUSCULAR HGB CONC 33 g/dl (31.0-36.0); MEAN CORPUSCULAR VOLUME 94 fL (80-96); MONOCYTES # (AUTO) 0.4 /CMM (0.1-1.30); MONOCYTES % (AUTO) 8.7 % (2.0-12.0); NEUTROPHILS # (AUTO) 3.6 /CMM (1.8-8.9); NEUTROPHILS % (AUTO) 72.1 % (43.0-81.0); PLATELET COUNT (AUTO) 197 /CMM (150-450); RDW COEFFICIENT OF VARIATION 16.7 (11.5-15.0); WHITE BLOOD COUNT (AUTO) 4.9 K/uL (4.3-11.0)
[2018-02-21 15:40] LABS: CALCIUM, SERUM 8.1 mg/dL (8.5-10.1); CREATININE 2.7 mg/dL (0.6-1.3); POTASSIUM 4.2 mmol/L (3.5-5.1)
[2018-02-21 16:08] VITALS: BP 162/87
[2018-02-21] MEDS ORDERED: HYDR100T27 PO (16:14)
[2018-02-21] MEDS ORDERED: HYDR-4077 PO (16:19)
[2018-02-21] MEDS ORDERED: LOSA25TA13 PO (16:19)
[2018-02-21 17:20] VITALS: BP 162/87
--- NOTE | 2018-02-21 17:24 | NUR ---
RN NOTES PT APPEARS UPSET. CURRENTLY REFUSING WOUND PHOTO DOCUMENTATION, STATING IN AMHARIC "I JUST WANT TO LEAVE".
--- NOTE | 2018-02-21 18:00 | NUR ---
DISCHARGE NOTE PT DISCHARGED TO [facility]. VSS, NO S/S OF PAIN OR RESP DISTRESS. BOTH ID BAND AND IV ACCESS REMOVED. PT TEACHING PERFORMED REGARDING CHF AND CHF EXACERBATION. MED RECON INCLUDED WITH EXIT CARE. PT UNABLE TO SIGN D/C PAPERWORK AND BELONGINGS LIST. IN ADDITION, PT REFUSES WOUND PHOTO DOCUMENTATION. REPORT GIVEN TO RAPHAEL AT [facility]. PT LEFT HOSPITAL IN AMBULANCE WITH PARAMEDICS.
== END 2018-02-21 18:15 | DRG 291 ==
LOC: ER 13:46 → TELE 16:49 → MED 02-19 09:32
PROVIDERS: ADMIT Internal Medicine; ATTEND Internal Medicine
DX: I13.0 Hypertensive heart and chronic kidney disease with heart failure and stage 1 through stage 4 chronic kidney disease, or unspecified chronic kidney disease (principal); I50.33 Acute on chronic diastolic (congestive) heart failure; J90 Pleural effusion, not elsewhere classified; E11.22 Type 2 diabetes mellitus with diabetic chronic kidney disease; N18.4 Chronic kidney disease, stage 4 (severe); F03.90 Unspecified dementia, unspecified severity, without behavioral disturbance, psychotic disturbance, mood disturbance, and anxiety; E78.5 Hyperlipidemia, unspecified; Z90.49 Acquired absence of other specified parts of digestive tract; D64.9 Anemia, unspecified; Z89.512 Acquired absence of left leg below knee; E11.65 Type 2 diabetes mellitus with hyperglycemia; Z79.4 Long term (current) use of insulin; E11.51 Type 2 diabetes mellitus with diabetic peripheral angiopathy without gangrene; H40.9 Unspecified glaucoma; H54.7 Unspecified visual loss
CPT/HCPCS: 36415; 71045-TC; 80048-TC; 80053-TC; 80061-TC; 82962-TC; 83540-TC; 83735-TC; 84100-TC; 84484-TC; 85025-TC; 85730-TC; 87081-TC; 93307-TC; A4606; J1650; J1815; J3475; J7050; Z7610

== ENCOUNTER 2018-03-10 12:43 | Inpatient (IN) | payer MEDICARE, MEDICAID ==
[~2018-03-10] VITALS: Ht 175.3 cm; Wt 67.3 kg
[~2018-03-10 12:43] MED LIST changes: +BLOO-668 IN; -CALC-838 PO; +CHOL100044 PO; -CRAN450C PO; -DEXT15DR6 EACHEYE; +HYDR-3974 PO; -HYDR-4076 PO; +HYDR-4077 PO; -INSU100V3 SQ; +LOPE2TAB25 PO; +LOSA25TA13 PO; +MAG30ORA PO; +ONDA4TAB10 PO; +POLY15DR40 EACHEYE; -[UNRECOGNIZED DRUG - CODE] SQ
--- NOTE | 2018-03-10 13:06 | NUR ---
XRAY TCH AT BS
--- NOTE | 2018-03-10 13:06 | NUR ---
PATIENT TO ED, SENT BY MD VERNON ESTRADA FROM LAY DT GENERALIZED EDEMA. PATIENT IS AWAKE AND ALERT, NOT IN DISTRESS, NO SOB, NO CHEST PAIN, AFEBRILE. VSS
[2018-03-10 13:09] LABS: BASOPHILS % (AUTO) 0.3 % (0.0-2.0); EOSINOPHILS % (AUTO) 2.5 % (0.0-6.0); HEMATOCRIT 27 % (39-51); HEMOGLOBIN 8.8 g/dL (13.5-17.5); LYMPHOCYTES # (AUTO) 0.6 /CMM (0.8-4.8); LYMPHOCYTES % (AUTO) 11.5 % (20.0-44.0); MEAN CORPUSCULAR HGB CONC 32 g/dl (31.0-36.0); MEAN CORPUSCULAR VOLUME 99 fL (80-96); MONOCYTES # (AUTO) 0.4 /CMM (0.1-1.30); NEUTROPHILS # (AUTO) 4.3 /CMM (1.8-8.9); NEUTROPHILS % (AUTO) 78.7 % (43.0-81.0); PLATELET COUNT (AUTO) 174 /CMM (150-450); RDW COEFFICIENT OF VARIATION 17.9 (11.5-15.0); RED BLOOD CELL COUNT(AUTO) 2.76 MIL/uL (4.5-6.0); WHITE BLOOD COUNT (AUTO) 5.5 K/uL (4.3-11.0)
[2018-03-10 13:24] LABS: INR 1.03 (0.85-1.15)
[2018-03-10 13:26] LABS: ALBUMIN 2.2 g/dL (3.4-5.0); BILIRUBIN,DIRECT 0.1 mg/dL (0.0-0.2); BILIRUBIN,TOTAL 0.3 mg/dL (0.2-1.0); CALCIUM, SERUM 8.8 mg/dL (8.5-10.1); CREATININE 3.8 mg/dL (0.6-1.3); POTASSIUM 5.6 mmol/L (3.5-5.1); TOTAL PROTEIN, SERUM 5.9 g/dL (6.4-8.2)
[2018-03-10 13:28] LABS: TROPONIN I 0.058 ng/mL (0.00-0.056)
[2018-03-10] MEDS ORDERED: LOSA25TA13 PO (13:53)
[2018-03-10] MEDS ORDERED: HYDR-4076 PO (13:53)
[2018-03-10] MEDS ORDERED: MAGN400T26 PO (13:53)
[2018-03-10] MEDS ORDERED: BROM1.7D9 EACHEYE (13:53)
[2018-03-10] MEDS ORDERED: TIMO5DRO35 EACHEYE (13:53)
[2018-03-10] MEDS ORDERED: INSU100V3 SQ (13:53)
--- NOTE | 2018-03-10 14:40 | NUR ---
SMITH PAGED, AMY SMITH TRANSPORTATION LOGISTICS INTERNSHIP REAL ESTATE ANALYST
--- NOTE | 2018-03-10 14:47 | NUR ---
TELE 307-1 MAICOL FOR ACUTE RENAL FAILURE, AMY SMITH NP ADMITTING
--- NOTE | 2018-03-10 15:02 | NUR ---
REPORT GIVEN TO URIAH MILIAN FOR SARA TELE 307-2
--- NOTE | 2018-03-10 15:03 | NUR ---
RN NOTE REPORT RECEIVED BY SHAE STAHL RN
--- NOTE | 2018-03-10 15:15 | NUR ---
MORTAR WORKERPATRON ATTENDANT NOTE RECEIVED REPORT FOR PATIENT FROM ER. PATIENT IS FROM [facility] BROUGHT IN FOR BILATERAL UPPER EXTREMITY SWELLING AND RIGHT LOWER LEG SWELLING. PATIENT IS ALERT AND ORIENTED x4. JAPANESE SPEAKING. RIGHT AC 18G INTACT AND PATENT. SKIN ISSUES DOCUMENTED AND PLACED IN CHART. NO KNOWN ALLERGIES NOTED. CALL LIGHT WITHIN REACH AND SAFETY MEASURES IMPLEMENTED. ON ROOM AIR TOLERATING WELL AT 96%. AWAITING MD ORDERS AT THIS TIME. WILL CONTINUE TO MONITOR THROUGHOUT SHIFT.
[2018-03-10] MEDS ORDERED: DEXTROSE 50%-WATER 50 ML DISP.SYRIN IV PRN (15:30)
[2018-03-10] MEDS ORDERED: LOPERAMIDE HCL (2 MG CAP) 2 MG CAPSULE PO PRN (15:30)
[2018-03-10] MEDS ORDERED: ACETAMINOPHEN 325 MG TABLET PO PRN (15:30)
[2018-03-10] MEDS ORDERED: ONDANSETRON 4 MG TAB.RAPDIS PO PRN (15:30)
[2018-03-10] MEDS ORDERED: MAGNESIUM HYDROXIDE 30 ML UDC PO PRN (15:30)
[2018-03-10] MEDS ORDERED: MAG HYDROX/AL HYDROX/SIMETH 30 ML UDC PO PRN (15:30)
[2018-03-10] MEDS ORDERED: DICYCLOMINE HCL 10 MG CAPSULE PO PRN (15:30)
[2018-03-10 16:00] VITALS: BP 136/74
--- NOTE | 2018-03-10 16:00 | NUR ---
SENIOR APPLICATION SECURITY CONSULTANT NOTE INFORMED MD ABOUT PATIENT'S POTASSIUM-5.6. AWAITING CALL BACK
[2018-03-10] MEDS: POLYETHYLENE GLYCOL 3350 17 GM POWD.PACK PO SCH (17:00)
[2018-03-10] MEDS: DOCUSATE SODIUM 100 MG CAPSULE PO SCH (17:00)
[2018-03-10] MEDS: TIMOLOL 0.5% SOLN OPHTH 5 ML BOTTLE EACHEYE SCH (17:00)
[2018-03-10] MEDS: POLYVINYL ALCOHOL 15 ML BOTTLE EACHEYE SCH (17:00)
[2018-03-10] MEDS: TIMOLOL MAL/DORZOLAM HCL OPHTH 10 ML BOTTLE EACHEYE SCH (17:00)
[2018-03-10] MEDS ORDERED: FUROSEMIDE 40 MG/4 ML VIAL IV SCH (17:00)
[2018-03-10] MEDS: BLOOD SUGAR DIAGNOSTIC 1 EACH STRIP VI SCH ×2 (17:05→21:37)
[2018-03-10] MEDS: MAGNESIUM OXIDE 400 MG TABLET PO SCH (17:10)
[2018-03-10] MEDS: INSULIN REGULAR, HUMAN 100 UNIT/ML 3 ML VIAL SQ PRN (17:28)
--- NOTE | 2018-03-10 18:27 | NUR ---
WOUND CARE TECHNICIAN CLOSING NOTE PATIENT IS RESTING COMFORTABLY IN BED AT THIS TIME. NO FACIAL GRIMACING NOTED FOR PAIN. NO SOB OR DISTRESS NOTED. CALL LIGHT WITHIN REACH AT ALL TIMES. SAFETY MEASURES IMPLEMENTED. ABLE TO COMMUNICATE NEEDS. IV INTACT AND PATENT NO REDNESS OR SWELLING NOTED. ALL DUE MEDICATIONS GIVEN ORDERED. ALL NURSING CARE NEEDS ATTENDED TO NEEDED. BLOOD SUGAR MONITORED AND INSULIN GIVEN NEEDED. WILL ENDORSE TO DONKEY DOCTOR NURSE FOR SARA Addendum: 03/10/18 at 1830 by MAICOL MARTINEZ RN TELE-SR 60s
--- NOTE | 2018-03-10 19:12 | NUR ---
rn note md aware of patient's potassium no new orders at this time. endorsed to manufacturing shift supervisor nurse
[2018-03-10 20:00] VITALS: BP 106/57
--- NOTE | 2018-03-10 20:00 | NUR ---
RN NOTES RECEIVED PATIENT IN BED, ALERT AND ORIENTED X3, CALM, NO SOB, ON ROOM AIR, SPO2 98%, DENIES ANY PAIN AT THIS TIME, TAMAZIGHT SPEAKING ONLY, ON FLUID RESTRICTION DUE TO ACUTE RENAL FAILURE, NOTED BUE AND RIGHT LOWER EXT EDEMA, LEFT BKA, ON TELE MONITOR, SB 59, FALL PRECAUTION, WILL CONTINUE TO MONITOR, CALL LIGHT WITHIN REACH.
[2018-03-10 20:17] VITALS: BP 106/57
[2018-03-10] MEDS: BRIMONIDINE TARTRATE OPHT SOLN 5 ML BOTTLE EACHEYE SCH (20:48)
[2018-03-10] MEDS: hydrALAZINE HCL 25 MG TABLET PO SCH (20:49)
--- NOTE | 2018-03-10 20:50 | NUR ---
RN NOTES HYDRALAZINE AND COREG HELD, BP LOW 100/67 HR 56
[2018-03-10] MEDS ORDERED: CARVEDILOL 12.5 MG TABLET PO SCH (21:00)
[2018-03-10] MEDS: LATANOPROST EYE DROP 0.005% 2.5 ML BOTTLE EACHEYE SCH (21:37)
[2018-03-10] MEDS: INSULIN GLARGINE, 100 UNIT/ML CARTRIDGE SQ SCH (21:46)
[2018-03-10] MEDS: *INSULIN REGULAR(HUMULIN R)HUM 100 UNIT/ML VIAL SQ PRN (21:47)
[2018-03-10] MEDS: ATORVASTATIN 40 MG TABLET PO SCH (21:51)
[2018-03-10 22:00] VITALS: BP 100/67
[2018-03-11] VITALS (7 sets, daily range): BP systolic 93–140; BP diastolic 50–71
[2018-03-11] MEDS: BRIMONIDINE TARTRATE OPHT SOLN 5 ML BOTTLE EACHEYE SCH ×3 (04:41→22:31)
[2018-03-11] MEDS: hydrALAZINE HCL 25 MG TABLET PO SCH ×3 (04:54→22:29)
[2018-03-11] MEDS: BLOOD SUGAR DIAGNOSTIC 1 EACH STRIP VI SCH ×4 (06:37→22:30)
[2018-03-11] MEDS: FUROSEMIDE 100 MG/10 ML VIAL IV SCH ×3 (06:38→14:36)
--- NOTE | 2018-03-11 06:59 | NUR ---
RN NOTES PATIENT IS ALERT AND AWAKE, NO SOB, TOLERATING ROOM AIR, NO COMPLAIN OF PAIN, EDEMA TO BUE AND RIGHT LOWER LEG, REPOSITIONED, NO ADVERSE CHANGE OF CONDITION DURING SHIFT, GIVEN LASIX ORDERED, V/S STABLE, AFEBRILE, NEEDS ATTENDED, CALL LIGHT WITHIN REACH.
--- NOTE | 2018-03-11 07:15 | NUR ---
RN NOTES PATIENT A/OX4, MOHAWK SPEAKING, BREATHING EVEN AND UNLABORED, NO DISTRESS NOTED, DENIES PAIN AT THIS TIME, TURNED AND REPOSITIONED, KEPT COMFORTABLE, NEEDS ATTENDED AND MET, CALL LIGHT WITHIN REACH, WILL CONTINUE TO MONITOR.
[2018-03-11] MEDS: DOCUSATE SODIUM 100 MG CAPSULE PO SCH ×2 (09:00→16:02)
[2018-03-11] MEDS ORDERED: LOSARTAN POTASSIUM 25 MG TABLET PO SCH (09:00)
[2018-03-11] MEDS: POLYVINYL ALCOHOL 15 ML BOTTLE EACHEYE SCH ×3 (09:00→16:54)
[2018-03-11] MEDS: POLYETHYLENE GLYCOL 3350 17 GM POWD.PACK PO SCH (09:00)
[2018-03-11] MEDS ORDERED: Medication Not On Formulary EA (Bromfenac Sodium 1 DROP) EACHEYE SCH (09:00)
[2018-03-11] MEDS ORDERED: ISOSORBIDE MONONITRATE (30MG) 30 MG TAB.SR.24H PO SCH (09:00)
[2018-03-11] MEDS: TIMOLOL 0.5% SOLN OPHTH 5 ML BOTTLE EACHEYE SCH ×2 (09:00→16:54)
[2018-03-11] MEDS: ASPIRIN 81 MG TAB.CHEW PO SCH (09:48)
[2018-03-11] MEDS: ISOSORBIDE MONONITRATE 20 MG TABLET PO SCH (09:49)
[2018-03-11] MEDS: MULTIVIT, IRON, MIN NO. 8, FA 1 TAB PO SCH (09:49)
[2018-03-11] MEDS: METOLAZONE 2.5 MG TABLET PO SCH (09:49)
[2018-03-11] MEDS: MAGNESIUM OXIDE 400 MG TABLET PO SCH ×2 (09:49→16:55)
[2018-03-11] MEDS: CHOLECALCIFEROL 1,000 UNIT TABLET (VIT D3) PO SCH (09:49)
[2018-03-11] MEDS: TIMOLOL MAL/DORZOLAM HCL OPHTH 10 ML BOTTLE EACHEYE SCH ×2 (09:56→16:54)
[2018-03-11 14:51] LABS: BASOPHILS % (AUTO) 0.3 % (0.0-2.0); EOSINOPHILS % (AUTO) 2.5 % (0.0-6.0); HEMATOCRIT 27 % (39-51); HEMOGLOBIN 8.5 g/dL (13.5-17.5); LYMPHOCYTES # (AUTO) 0.7 /CMM (0.8-4.8); MEAN CORPUSCULAR HGB CONC 32 g/dl (31.0-36.0); MEAN CORPUSCULAR VOLUME 98 fL (80-96); MONOCYTES # (AUTO) 0.5 /CMM (0.1-1.30); MONOCYTES % (AUTO) 9.2 % (2.0-12.0); NEUTROPHILS # (AUTO) 3.8 /CMM (1.8-8.9); PLATELET COUNT (AUTO) 173 /CMM (150-450); RDW COEFFICIENT OF VARIATION 17.9 (11.5-15.0); RED BLOOD CELL COUNT(AUTO) 2.73 MIL/uL (4.5-6.0); WHITE BLOOD COUNT (AUTO) 5.1 K/uL (4.3-11.0)
[2018-03-11 15:13] LABS: CALCIUM, SERUM 8.1 mg/dL (8.5-10.1); CREATININE 3.7 mg/dL (0.6-1.3); PHOSPHORUS 5.4 mg/dL (2.5-4.9); POTASSIUM 5.7 mmol/L (3.5-5.1)
--- NOTE | 2018-03-11 16:00 | NUR ---
RN NOTES RELAYED CRITICAL LAB RESULTS TO AMY SMITH NP. RECEIVED ORDER FOR AN EKG. ORDER NOTED AND CARRIED OUT. PATIENT ASYMPTOMATIC, DENIES CHEST PAIN. WILL CONTINUE TO MONITOR.
[2018-03-11] MEDS ORDERED: Z GUARD REMEDY 2 OZ OINT TP PRN (17:00)
--- NOTE | 2018-03-11 17:15 | NUR ---
RN NOTES PATIENT REFUSED TO HAVE BLOOD SUGAR CHECKED, HE STATES "ITS TOO PAINFUL, I DONT WANT IT, IN [place]" EXPLAINED RISKS AND BENEFITS, PATIENT STILL REFUSED. NO S/SX OF HYPO OR HYPERGLYCEMIA NOTED AT THIS TIME. WILL CONTINUE TO MONITOR.
--- NOTE | 2018-03-11 18:17 | NUR ---
RN NOTES PATIENT A/OX4, ALBANIAN SPEAKING, NO DISTRESS NOTED, PIV ON RIGHT AC SALINE LOCK. DENIES PAIN AT THIS TIME, NO S/SX OF HYPO/HYPERGLYCEMIA, STILL REFUSING BLOOD SUGAR CHECK, RE-EDUCATED RE: DIABETES MANAGEMENT. FLUID RESTRICTION OBSERVED, TURNED AND REPOSITIONED EVERY 2 HOURS, KEPT SKIN CLEAN AND DRY, ORDERED Z-GUARD FOR SKIN MANAGEMENT. ALL NEEDS ATTENDED AND MET, CALL LIGHT WITHIN REACH, WILL ENDORSE TO BUYER PLANNER FOR SARA.
--- NOTE | 2018-03-11 19:10 | NUR ---
MS RN NOTES RECEIVED PATIENT IN BED, RESTING COMFORTABLY, AROUSES EASILY. A/OX4, FAROESE SPEAKING, NO SOB NOR DISTRESS NOTED, IV SITE ON RIGHT AC INTACT AND PATENT. NO S/S OF INFILTRATION NOTED. NO C/O PAIN AT THIS TIME, NO S/SX OF HYPO/HYPERGLYCEMIA. FLUID RESTRICTION OBSERVED, TURNED AND REPOSITIONED EVERY 2 HOURS, KEPT SKIN CLEAN AND DRY. ALL NEEDS ATTENDED AND MET, CALL LIGHT WITHIN REACH, SAFETY PRECAUTIONS OBSERVED. WILL CONT TO MONITOR.
[2018-03-11] MEDS: INSULIN GLARGINE, 100 UNIT/ML CARTRIDGE SQ SCH (22:00)
[2018-03-11] MEDS: ATORVASTATIN 40 MG TABLET PO SCH (22:22)
[2018-03-11] MEDS: LATANOPROST EYE DROP 0.005% 2.5 ML BOTTLE EACHEYE SCH (22:30)
--- NOTE | 2018-03-12 03:57 | NUR ---
PT IN BED, ASLEEP AT THIS TIME, AROUSES EASILY. NO DISTRESS , NO SOB AT THIS TIME APPEARS COMFORTABLE. SAFETY PRECAUTIONS OBSERVED. CALL LIGHT WITHIN REACH. WILL CONT TO MONITOR.
[2018-03-12] MEDS: BRIMONIDINE TARTRATE OPHT SOLN 5 ML BOTTLE EACHEYE SCH ×3 (05:56→20:32)
[2018-03-12] MEDS: hydrALAZINE HCL 25 MG TABLET PO SCH ×3 (05:57→21:00)
[2018-03-12] MEDS: BLOOD SUGAR DIAGNOSTIC 1 EACH STRIP VI SCH ×4 (05:59→22:17)
--- NOTE | 2018-03-12 06:21 | NUR ---
MS RN NOTES PATIENT IN BED, AWAKE, A/OX4, FRENCH SPEAKING, NO SOB NOR DISTRESS NOTED, IV SITE ON RIGHT AC INTACT AND PATENT. NO S/S OF INFILTRATION NOTED. NO C/O PAIN AT THIS TIME, NO S/SX OF HYPO/HYPERGLYCEMIA. FLUID RESTRICTION OBSERVED, TURNED AND REPOSITIONED EVERY 2 HOURS, KEPT SKIN CLEAN AND DRY. ALL NEEDS ATTENDED AND MET, TURNED AND REPOSITIONED Q 2 HOURS. CALL LIGHT WITHIN REACH, SAFETY PRECAUTIONS OBSERVED. WILL ENDORSE TO NEXT SHIFT FOR SARA.
[2018-03-12 06:40] LABS: BASOPHILS % (AUTO) 0.5 % (0.0-2.0); EOSINOPHILS % (AUTO) 2.5 % (0.0-6.0); HEMATOCRIT 27 % (39-51); HEMOGLOBIN 8.9 g/dL (13.5-17.5); LYMPHOCYTES # (AUTO) 0.7 /CMM (0.8-4.8); LYMPHOCYTES % (AUTO) 12.6 % (20.0-44.0); MEAN CORPUSCULAR HGB CONC 33 g/dl (31.0-36.0); MEAN CORPUSCULAR VOLUME 98 fL (80-96); MONOCYTES # (AUTO) 0.4 /CMM (0.1-1.30); MONOCYTES % (AUTO) 7.4 % (2.0-12.0); NEUTROPHILS # (AUTO) 4.1 /CMM (1.8-8.9); PLATELET COUNT (AUTO) 175 /CMM (150-450); RDW COEFFICIENT OF VARIATION 17.7 (11.5-15.0); RED BLOOD CELL COUNT(AUTO) 2.76 MIL/uL (4.5-6.0); WHITE BLOOD COUNT (AUTO) 5.3 K/uL (4.3-11.0)
[2018-03-12 07:05] LABS: ALBUMIN 2.1 g/dL (3.4-5.0); BILIRUBIN,TOTAL 0.4 mg/dL (0.2-1.0); CALCIUM, SERUM 8.2 mg/dL (8.5-10.1); CREATININE 3.6 mg/dL (0.6-1.3); MAGNESIUM 2.2 mg/dL (1.8-2.4); PHOSPHORUS 5.4 mg/dL (2.5-4.9); POTASSIUM 5.4 mmol/L (3.5-5.1); TOTAL PROTEIN, SERUM 5.8 g/dL (6.4-8.2)
--- NOTE | 2018-03-12 07:20 | NUR ---
RECEIVED A CALL FROM LAB, BUN : 88 FROM BUN: 89 YESTERDAY. ENDORSED TO URIAH MCKNIGHT ACCORDINGLY
[2018-03-12 08:00] VITALS: BP 127/69
[2018-03-12] MEDS: FUROSEMIDE 100 MG/10 ML VIAL IV SCH ×3 (08:55→18:08)
[2018-03-12] MEDS: POLYETHYLENE GLYCOL 3350 17 GM POWD.PACK PO SCH ×2 (09:00→09:13)
[2018-03-12] MEDS: DOCUSATE SODIUM 100 MG CAPSULE PO SCH ×3 (09:00→18:06)
[2018-03-12] MEDS: ASPIRIN 81 MG TAB.CHEW PO SCH (09:13)
[2018-03-12] MEDS: MAGNESIUM OXIDE 400 MG TABLET PO SCH ×2 (09:13→18:07)
[2018-03-12] MEDS: MULTIVIT, IRON, MIN NO. 8, FA 1 TAB PO SCH (09:14)
[2018-03-12] MEDS: METOLAZONE 2.5 MG TABLET PO SCH (09:14)
[2018-03-12] MEDS: CHOLECALCIFEROL 1,000 UNIT TABLET (VIT D3) PO SCH (09:14)
[2018-03-12] MEDS: TIMOLOL MAL/DORZOLAM HCL OPHTH 10 ML BOTTLE EACHEYE SCH ×2 (09:15→18:09)
[2018-03-12] MEDS: POLYVINYL ALCOHOL 15 ML BOTTLE EACHEYE SCH ×3 (09:15→18:08)
[2018-03-12] MEDS: TIMOLOL 0.5% SOLN OPHTH 5 ML BOTTLE EACHEYE SCH ×2 (09:15→18:09)
--- NOTE | 2018-03-12 11:56 | NUR ---
REFUSED BGL AT THIS TIME.
[2018-03-12] MEDS: Z GUARD REMEDY 2 OZ OINT TP SCH (12:44)
[2018-03-12] MEDS: ISOSORBIDE MONONITRATE 20 MG TABLET PO SCH (13:05)
[2018-03-12 16:00] VITALS: BP 149/76
--- NOTE | 2018-03-12 18:00 | NUR ---
Shae SMITH DRIVER MEDIC IN, IN TO VISIT.
[2018-03-12] MEDS ORDERED: FUROSEMIDE 100 MG/10 ML VIAL IV SCH (18:30)
--- NOTE | 2018-03-12 19:00 | NUR ---
MS RN INITIAL NOTES: Patient received in bed, sleeping, but easily arousable. Alert, oriented x 4. Breathing even and unlabored. Not in distress. No complaints as of this time. Call boyd within reach. Bed in low locked position. Patient stable as endorsed by the morning shift RN
[2018-03-12] MEDS: *INSULIN REGULAR(HUMULIN R)HUM 100 UNIT/ML VIAL SQ PRN (19:14)
[2018-03-12 20:00] VITALS: BP 156/74
--- NOTE | 2018-03-12 20:30 | NUR ---
MS RN NOTES: Called pharmacy regarding apresoline. Spoke to Pascual. Last dose given was at 18:08 hrs. Clarified with her when the next dose should be given. Next dose of Apresoline will be given at 05:00hrs.
--- NOTE | 2018-03-12 21:30 | NUR ---
MS RN NOTES: BSL 168. Patient refused insulin. Explained the risks of not taking it, but still, patient refused to have it.
[2018-03-12] MEDS: INSULIN GLARGINE, 100 UNIT/ML CARTRIDGE SQ SCH (22:00)
--- NOTE | 2018-03-12 22:00 | NUR ---
RN NOTES LANTUS 15 UNITS WAS NOT GIVEN- PT. REFUSED WELL
[2018-03-12] MEDS: ATORVASTATIN 40 MG TABLET PO SCH (22:16)
[2018-03-12] MEDS: LATANOPROST EYE DROP 0.005% 2.5 ML BOTTLE EACHEYE SCH (22:16)
[2018-03-13 04:45] VITALS: BP 144/70
[2018-03-13] MEDS: BRIMONIDINE TARTRATE OPHT SOLN 5 ML BOTTLE EACHEYE SCH ×3 (04:45→21:46)
[2018-03-13] MEDS: hydrALAZINE HCL 25 MG TABLET PO SCH ×3 (04:46→21:47)
[2018-03-13] MEDS: INSULIN REGULAR, HUMAN 100 UNIT/ML 3 ML VIAL SQ PRN ×3 (06:13→17:34)
--- NOTE | 2018-03-13 06:15 | NUR ---
MS RN NOTES: Patient's BSL 141. Patient refused insulin.
--- NOTE | 2018-03-13 06:34 | NUR ---
MS RN NOTES: Patient in bed, sleeping, but easily arousable. Breathing even and unlabored. Not in distress. No complaints of discomfort. Patient urinating in the urinal, 680 mL. All needs attended to. All medications given as ordered. Patient refusing insulin coverage. Patient only able to understand and speak maori. Will endorse continuity of care to morning shift RN.
[2018-03-13] MEDS: BLOOD SUGAR DIAGNOSTIC 1 EACH STRIP VI SCH ×4 (07:17→23:23)
--- NOTE | 2018-03-13 07:25 | NUR ---
MS RN OPENINGS NOTES PATIENT RECEIVED AWAKE IN BED IN NO ACUTE SIGNS OF DISTRESS. A/OX4, PUERTO RICAN SPEAKING, DENIES PAIN OR ANY DISCOMFORTS AT THIS TIME. ON ROOM AIR, BREATHING EVEN AND UNLABORED. IV ACCESS ON RIGHT AC G#18 INTACT AND PATENT. MAINTAINED ON FLUID RESTRICTION OF 1,200ML /DAY. SAFETY MEASURES IN PLACE. HOB ELEVATED WITH SIDE-RAILS UP X2. BED IN LOW AND LOCKED POSITION. CALL LIGHT WITHIN REACH. WILL CONTINUE TO MONITOR.
[2018-03-13 08:00] VITALS: BP 143/69
[2018-03-13] MEDS: MAGNESIUM OXIDE 400 MG TABLET PO SCH ×2 (08:22→16:38)
[2018-03-13] MEDS: MULTIVIT, IRON, MIN NO. 8, FA 1 TAB PO SCH (08:22)
[2018-03-13] MEDS: METOLAZONE 2.5 MG TABLET PO SCH (08:23)
[2018-03-13] MEDS: ISOSORBIDE MONONITRATE 20 MG TABLET PO SCH (08:23)
[2018-03-13] MEDS: POLYETHYLENE GLYCOL 3350 17 GM POWD.PACK PO SCH (08:23)
[2018-03-13] MEDS: ASPIRIN 81 MG TAB.CHEW PO SCH (08:23)
[2018-03-13] MEDS: CHOLECALCIFEROL 1,000 UNIT TABLET (VIT D3) PO SCH (08:23)
[2018-03-13] MEDS: DOCUSATE SODIUM 100 MG CAPSULE PO SCH ×2 (08:23→16:38)
[2018-03-13] MEDS: Z GUARD REMEDY 2 OZ OINT TP SCH (08:23)
[2018-03-13] MEDS: POLYVINYL ALCOHOL 15 ML BOTTLE EACHEYE SCH ×3 (08:30→16:27)
[2018-03-13] MEDS: TIMOLOL 0.5% SOLN OPHTH 5 ML BOTTLE EACHEYE SCH ×2 (08:30→16:28)
[2018-03-13] MEDS: TIMOLOL MAL/DORZOLAM HCL OPHTH 10 ML BOTTLE EACHEYE SCH ×2 (08:30→16:28)
[2018-03-13] MEDS ORDERED: BUMETANIDE INJ 8 MG in IV NS 0.9% 48 ML IV ONE (12:30)
[2018-03-13] MEDS ORDERED: METOLAZONE 2.5 MG TABLET PO ONE (13:00)
[2018-03-13 16:00] VITALS: BP 157/81
[2018-03-13 16:57] LABS: BASOPHILS % (AUTO) 0.4 % (0.0-2.0); EOSINOPHILS % (AUTO) 1.9 % (0.0-6.0); HEMATOCRIT 27 % (39-51); HEMOGLOBIN 8.8 g/dL (13.5-17.5); LYMPHOCYTES # (AUTO) 0.6 /CMM (0.8-4.8); LYMPHOCYTES % (AUTO) 9.5 % (20.0-44.0); MEAN CORPUSCULAR HGB CONC 32 g/dl (31.0-36.0); MEAN CORPUSCULAR VOLUME 98 fL (80-96); MONOCYTES # (AUTO) 0.5 /CMM (0.1-1.30); MONOCYTES % (AUTO) 7.4 % (2.0-12.0); NEUTROPHILS % (AUTO) 80.8 % (43.0-81.0); PLATELET COUNT (AUTO) 175 /CMM (150-450); RDW COEFFICIENT OF VARIATION 18.5 (11.5-15.0); RED BLOOD CELL COUNT(AUTO) 2.79 MIL/uL (4.5-6.0); WHITE BLOOD COUNT (AUTO) 6.1 K/uL (4.3-11.0)
[2018-03-13 17:12] LABS: ALBUMIN 2.1 g/dL (3.4-5.0); BILIRUBIN,TOTAL 0.3 mg/dL (0.2-1.0); CALCIUM, SERUM 8.1 mg/dL (8.5-10.1); CREATININE 3.9 mg/dL (0.6-1.3); MAGNESIUM 2.4 mg/dL (1.8-2.4); PHOSPHORUS 5.4 mg/dL (2.5-4.9); POTASSIUM 5.5 mmol/L (3.5-5.1); TOTAL PROTEIN, SERUM 5.8 g/dL (6.4-8.2)
--- NOTE | 2018-03-13 17:30 | NUR ---
RN NOTES RN CARE MANAGER CALLED AND REPORTED THAT PT'S BUN IS CRITICAL HIGH 96, LEFT MESSAGE TO DR ADAME. AWAITING FOR RESPONSE. WILL CONTINUE TO MONITOR.
--- NOTE | 2018-03-13 18:57 | NUR ---
RN NOTES DR ADAME REPLIED WITH ORDER TO GIVE KAYEXALATE 30MG P.O. X 1 DOSE. ENDORSED TO CHARCOAL UNLOADER NURSE TRINH TO ADMINISTER. WILL CONTINUE TO MONITOR.
--- NOTE | 2018-03-13 19:00 | NUR ---
MS RN OPENINGS NOTES PATIENT RECEIVED AWAKE IN BED IN NO ACUTE SIGNS OF DISTRESS. A/OX4, VINCENTIAN SPEAKING, DENIES PAIN OR ANY DISCOMFORTS AT THIS TIME. ON ROOM AIR, BREATHING EVEN AND UNLABORED. IV FLUID INFUSING AT 10ML/HR. ON FLUID RESTRICTION OF 1,200ML /DAY. SAFETY MEASURES IN PLACE. HOB ELEVATED WITH SIDE-RAILS UP X2. BED IN LOW AND LOCKED POSITION. CALL LIGHT WITHIN REACH. PATIENT STABLE ENDORSED BY THE MORNING SHIFT RN
[2018-03-13] MEDS ORDERED: SODIUM POLYSTYRENE SULFONATE 15 G/60 ML BOTTLE PO ONE (19:30)
--- NOTE | 2018-03-13 19:30 | NUR ---
MS RN CLOSINGS NOTES PATIENT RESTING IN BED WITH FAMILY AT BEDSIDE. A/OX4, CYPRIOT SPEAKING. ALL NEEDS AND CARE PROVIDED WELL. ON ROOM AIR, BREATHING EVEN WITH NO SOB NOTED. IV ACCESS ON RIGHT AC G#18 INTACT AND PATENT, IV BUMEX RUNNING @ 10ML/HR (8MG/HR), NO SIGNS OF INFILTRATION NOTED. . MAINTAINED ON FLUID RESTRICTION OF 1,200ML /DAY. ALL SAFETY MEASURES IN PLACE. HOB ELEVATED WITH SIDE-RAILS UP X2. BED IN LOW AND LOCKED POSITION. CALL LIGHT WITHIN REACH. WILL ENDORSE TO SENIOR STRATEGY MANAGER NURSE FOR SARA.
--- NOTE | 2018-03-13 19:33 | NUR ---
RN NOTES ENDORSED TO CLOTH SPREADER NURSE TO TELL THE MORNING NURSE THAT PT'S DAUGHTER AND GRANDSON WILL COME TOMORROW MORNING TO TALK TO DR OFELIA ADAME REGARDING THEIR CONCERNS ABOUT HEMODIALYSIS.
--- NOTE | 2018-03-13 19:58 | NUR ---
MS RN NOTES: Patient refused kayexelate. Asked for an RN who translated to him the importance of the medication, but still, patient refused
[2018-03-13 20:00] VITALS: BP 157/71
--- NOTE | 2018-03-13 21:30 | NUR ---
MS NOTES: PATIENT'S BSL 195. PATIENT REFUSED INSULIN DESPITE EXPLANATION OF THE IMPORTANCE OF THE MEDICATION.
[2018-03-13] MEDS: ATORVASTATIN 40 MG TABLET PO SCH (21:46)
[2018-03-13] MEDS: INSULIN GLARGINE, 100 UNIT/ML CARTRIDGE SQ SCH (22:00)
--- NOTE | 2018-03-13 22:00 | NUR ---
RN NOTES: LANTUS 15 UNITS NOT GIVEN. PATIENT REFUSED WELL.
[2018-03-13] MEDS: LATANOPROST EYE DROP 0.005% 2.5 ML BOTTLE EACHEYE SCH (23:12)
[2018-03-14] MEDS: hydrALAZINE HCL 25 MG TABLET PO SCH ×3 (05:00→21:06)
[2018-03-14] MEDS: BRIMONIDINE TARTRATE OPHT SOLN 5 ML BOTTLE EACHEYE SCH ×3 (05:08→21:08)
--- NOTE | 2018-03-14 05:14 | NUR ---
RN NOTES: Apresoline not given; pulse rate below 60 P-58. Clarified with Preceptor Elis and Charge nurse Ara
[2018-03-14] MEDS: INSULIN REGULAR, HUMAN 100 UNIT/ML 3 ML VIAL SQ PRN ×3 (06:13→16:37)
[2018-03-14 06:27] LABS: BASOPHILS % (AUTO) 0.6 % (0.0-2.0); EOSINOPHILS % (AUTO) 1.9 % (0.0-6.0); HEMATOCRIT 29 % (39-51); HEMOGLOBIN 9.5 g/dL (13.5-17.5); LYMPHOCYTES # (AUTO) 0.7 /CMM (0.8-4.8); LYMPHOCYTES % (AUTO) 10.1 % (20.0-44.0); MEAN CORPUSCULAR HGB CONC 33 g/dl (31.0-36.0); MEAN CORPUSCULAR VOLUME 98 fL (80-96); MONOCYTES # (AUTO) 0.5 /CMM (0.1-1.30); MONOCYTES % (AUTO) 7.2 % (2.0-12.0); NEUTROPHILS # (AUTO) 5.3 /CMM (1.8-8.9); NEUTROPHILS % (AUTO) 80.2 % (43.0-81.0); PLATELET COUNT (AUTO) 173 /CMM (150-450); RDW COEFFICIENT OF VARIATION 18.1 (11.5-15.0); RED BLOOD CELL COUNT(AUTO) 2.94 MIL/uL (4.5-6.0); WHITE BLOOD COUNT (AUTO) 6.6 K/uL (4.3-11.0)
[2018-03-14 06:42] LABS: CALCIUM, SERUM 8.7 mg/dL (8.5-10.1); CREATININE 3.8 mg/dL (0.6-1.3); MAGNESIUM 2.7 mg/dL (1.8-2.4); PHOSPHORUS 5.5 mg/dL (2.5-4.9); POTASSIUM 5.1 mmol/L (3.5-5.1)
--- NOTE | 2018-03-14 06:54 | NUR ---
MS RN CLOSING NOTES: Patient in bed, sleeping, but easily arousable. Alert, oriented x 3, verbally responsive, ukrainian speaking only. On room air, saturating well. Breathing even and unlabored. No distress noted. Urinating in the urinal around 800mL overnight. All cares attended to. All due medications given as ordered. Call boyd within reach. Bed in low, locked position. Will endorse SARA to AM shift RN.
[2018-03-14] MEDS: BLOOD SUGAR DIAGNOSTIC 1 EACH STRIP VI SCH ×4 (07:30→22:00)
[2018-03-14 08:00] VITALS: BP 160/76
[2018-03-14] MEDS: POLYVINYL ALCOHOL 15 ML BOTTLE EACHEYE SCH ×3 (08:10→16:01)
[2018-03-14] MEDS: POLYETHYLENE GLYCOL 3350 17 GM POWD.PACK PO SCH (08:14)
[2018-03-14] MEDS: DOCUSATE SODIUM 100 MG CAPSULE PO SCH ×2 (08:14→16:09)
[2018-03-14] MEDS: ASPIRIN 81 MG TAB.CHEW PO SCH (08:14)
[2018-03-14] MEDS: TIMOLOL MAL/DORZOLAM HCL OPHTH 10 ML BOTTLE EACHEYE SCH ×2 (08:15→16:03)
[2018-03-14] MEDS: MAGNESIUM OXIDE 400 MG TABLET PO SCH ×2 (08:17→16:09)
[2018-03-14] MEDS: MULTIVIT, IRON, MIN NO. 8, FA 1 TAB PO SCH (08:17)
[2018-03-14] MEDS: CHOLECALCIFEROL 1,000 UNIT TABLET (VIT D3) PO SCH (08:17)
[2018-03-14] MEDS: ISOSORBIDE MONONITRATE 20 MG TABLET PO SCH (08:19)
[2018-03-14] MEDS: METOLAZONE 2.5 MG TABLET PO SCH (08:19)
[2018-03-14] MEDS: TIMOLOL 0.5% SOLN OPHTH 5 ML BOTTLE EACHEYE SCH ×2 (08:21→16:07)
--- NOTE | 2018-03-14 08:22 | NUR ---
MS RN NOTES PATIENT IN BED, BREAKFAST WAS SERVED, GOOD APPETITE. BREATHING IN ROOM AIR, TOLERATING WELL WITH NO SOB. LEGALLY BLIND BOTH EYES, ASSISTED WITH FEEDING. DENIES PAIN. CALL LIGHT WITHIN REACH, BED LOW AND LOCKED, BED ALARM PLACE ON. WILL CONT TO MONITOR.
[2018-03-14 08:45] LABS: BAND % (MANUAL) 1 % (0.0-5.0); EOSINOPHILS % (MANUAL) 1 % (0-4); LYMPHOCYTES % (MANUAL) 7 % (16-48); MONOCYTES % (MANUAL) 3 % (0-11.0); NEUTROPHILS % (MANUAL) 88 (42-76)
[2018-03-14 09:07] VITALS: BP 164/76
[2018-03-14] MEDS: Z GUARD REMEDY 2 OZ OINT TP SCH (10:30)
[2018-03-14] MEDS ORDERED: METOLAZONE 2.5 MG TABLET PO ONE (14:30)
[2018-03-14] MEDS ORDERED: BUMETANIDE INJ 8 MG in IV NS 0.9% 48 ML IV ONE (15:00)
--- NOTE | 2018-03-14 15:39 | NUR ---
EPTEY, AT THE BEDSIDE. DR. OFELIA ADAME SPOKE TO THE AND PATIENT WITH COMPUTER INFORMATION SCIENCE PROFESSOR RN FOR LENGTH OF TIME. DISCUSSED PLAN RECOMMENDATION HD TREATMENT, VERSUS POSSIBLE HOSPICE CARE. RISK AND BENEFITS EXPLAINED TO THE PATIENT AND . DECISION MADE BY THE , AGREED TO PROCEED HEMODIALYSIS, NOTIFIED DR. OFELIA ADAME.
[2018-03-14 16:21] VITALS: BP_SYST 112; BP_SYST 152; BP_DIAS 68; BP_DIAS 72
--- NOTE | 2018-03-14 18:51 | NUR ---
MS RN CLOSING NOTES ASSISTED WITH FEEDING, GOOD APPETITE. STILL HAS ANASARCA, VS REMAINS STABLE, DENIES SOB. BLOOD SUGAR MONITORED WITH INSULIN PER PARAMETERS. MAINTAINED ON FLUID RESTRICTION 1200ML/DAY. BUMEX IV INFUSING AT 10ML/HR. LEGALLY BLIND, EXTENSIVE ASSIST. CALL LIGHT WITHIN REACH. WILL ENDORSE TO ONCOMING RN.
--- NOTE | 2018-03-14 19:56 | NUR ---
MS RN NOTES Patient in received in bed, resting and easily arousable. No complaints of pain. No SOB noted or any type of distress. Generalized edema noted. Verbally rsponsive: sami speaking prefered. Continue on fluid restriction order. Safety measures in place. Bed in lowest position with call light within reach. Will continue to monitor and assess patient
[2018-03-14 20:13] VITALS: BP 147/71
[2018-03-14] MEDS: ATORVASTATIN 40 MG TABLET PO SCH (21:06)
[2018-03-14] MEDS: LATANOPROST EYE DROP 0.005% 2.5 ML BOTTLE EACHEYE SCH (21:06)
[2018-03-14] MEDS: INSULIN GLARGINE, 100 UNIT/ML CARTRIDGE SQ SCH (22:00)
--- NOTE | 2018-03-14 22:03 | NUR ---
MS RN - NON-ADMIN NOTES Patient refused to have his blood sugar taken and refused to take Lantus. Explained risks vs benefits. Patient continues to refuse. Patient stated, "Please understand that I don't want to get poked again. I just want to rest. They never let rest. Thank you for understanding." (Translated by: ASLMA Thurston)
[2018-03-15 00:22] VITALS: BP 157/89
[2018-03-15] MEDS: BRIMONIDINE TARTRATE OPHT SOLN 5 ML BOTTLE EACHEYE SCH ×3 (05:23→20:51)
[2018-03-15] MEDS: hydrALAZINE HCL 25 MG TABLET PO SCH ×3 (05:23→20:53)
--- NOTE | 2018-03-15 05:56 | NUR ---
MS RN CLOSING NOTES Patient in bed, awake and verbally responsive (kyrgyz speaking). Complaints of generalized pain when being repositioned and changed. Handled gently. Continue on daily weights. Patient breathing normally, unlabored with no shortness of breath or any type of distress noted or reported. HOB elevated. Offload heels and bony prominence. Turned and repositioned every 2 hours and as tolerated by patient. All needs provided and met. Safety measures in place. Bed in lowest position with bed alarm on and call light within reach. Will continue to monitor patient and will endorse to oncoming nurse.
[2018-03-15 06:22] LABS: BASOPHILS % (AUTO) 0.2 % (0.0-2.0); EOSINOPHILS % (AUTO) 1.7 % (0.0-6.0); HEMATOCRIT 29 % (39-51); HEMOGLOBIN 9.5 g/dL (13.5-17.5); LYMPHOCYTES # (AUTO) 0.6 /CMM (0.8-4.8); LYMPHOCYTES % (AUTO) 8.8 % (20.0-44.0); MEAN CORPUSCULAR HGB CONC 32 g/dl (31.0-36.0); MEAN CORPUSCULAR VOLUME 99 fL (80-96); MONOCYTES # (AUTO) 0.5 /CMM (0.1-1.30); MONOCYTES % (AUTO) 6.8 % (2.0-12.0); NEUTROPHILS # (AUTO) 5.5 /CMM (1.8-8.9); NEUTROPHILS % (AUTO) 82.5 % (43.0-81.0); PLATELET COUNT (AUTO) 187 /CMM (150-450); RDW COEFFICIENT OF VARIATION 18.1 (11.5-15.0); RED BLOOD CELL COUNT(AUTO) 2.96 MIL/uL (4.5-6.0); WHITE BLOOD COUNT (AUTO) 6.7 K/uL (4.3-11.0)
[2018-03-15] MEDS: BLOOD SUGAR DIAGNOSTIC 1 EACH STRIP VI SCH ×4 (07:05→21:01)
[2018-03-15] MEDS: INSULIN REGULAR, HUMAN 100 UNIT/ML 3 ML VIAL SQ PRN ×3 (07:06→18:01)
[2018-03-15 07:17] LABS: CALCIUM, SERUM 8.8 mg/dL (8.5-10.1); CREATININE 3.7 mg/dL (0.6-1.3); MAGNESIUM 2.8 mg/dL (1.8-2.4); PHOSPHORUS 5.2 mg/dL (2.5-4.9); POTASSIUM 5.1 mmol/L (3.5-5.1)
--- NOTE | 2018-03-15 07:45 | NUR ---
MS RN NOTES PATIENT IN BED, SLEEPING, AROUSES EASILY. STILL HAS ANASARCA, PATIENT IS BREATHING ON ROOM AIR WITH NO SOB. PATIENT REFUSED ACCUCHECK AND INSULIN PER NIGHT RN. SAFETY MEASURE IN PLACE. WILL CONT TO MONITOR.
[2018-03-15 08:00] VITALS: BP 146/68
[2018-03-15] MEDS: POLYVINYL ALCOHOL 15 ML BOTTLE EACHEYE SCH ×3 (08:42→18:00)
[2018-03-15] MEDS: TIMOLOL 0.5% SOLN OPHTH 5 ML BOTTLE EACHEYE SCH ×2 (08:44→18:04)
[2018-03-15] MEDS: TIMOLOL MAL/DORZOLAM HCL OPHTH 10 ML BOTTLE EACHEYE SCH ×2 (08:50→18:02)
--- NOTE | 2018-03-15 08:51 | NUR ---
BREAKFAST WAS SERVED WITH GOOD APPETITE, ASSISTED WITH FEEDING.
[2018-03-15] MEDS ORDERED: BUMETANIDE INJ 8 MG in IV D5W 48 ML IV ONE (09:30)
[2018-03-15] MEDS: DOCUSATE SODIUM 100 MG CAPSULE PO SCH ×2 (09:38→18:03)
[2018-03-15] MEDS: METOLAZONE 2.5 MG TABLET PO SCH (09:38)
[2018-03-15] MEDS: POLYETHYLENE GLYCOL 3350 17 GM POWD.PACK PO SCH (09:38)
[2018-03-15] MEDS: ASPIRIN 81 MG TAB.CHEW PO SCH (09:38)
[2018-03-15] MEDS: MAGNESIUM OXIDE 400 MG TABLET PO SCH ×2 (09:38→18:03)
[2018-03-15] MEDS: MULTIVIT, IRON, MIN NO. 8, FA 1 TAB PO SCH (09:38)
[2018-03-15] MEDS: CHOLECALCIFEROL 1,000 UNIT TABLET (VIT D3) PO SCH (09:38)
[2018-03-15] MEDS: ISOSORBIDE MONONITRATE 20 MG TABLET PO SCH (09:38)
--- NOTE | 2018-03-15 09:43 | NUR ---
FOR CONSULT VASCULAR PER DR. COX. WILL UPDATE FAMILY.
[2018-03-15] MEDS: Z GUARD REMEDY 2 OZ OINT TP SCH (10:42)
[2018-03-15 12:15] LABS: CALCITRIOL VIT D,1, 25 DIHYDRO 9.5 pg/mL (19.9-79.3)
[2018-03-15 16:00] VITALS: BP 166/81
[2018-03-15 18:57] LABS: BILIRUBIN,URINE NEGATIVE (NEGATIVE); BLOOD, URINE NEGATIVE Ery/uL (NEGATIVE); COLOR,URINE YELLOW (YELLOW); KETONES,URINE NEGATIVE (NEGATIVE); LEUKOCYTE ESTERASE ,URINE TRACE (NEGATIVE); NITRITE, URINE POSITIVE (NEGATIVE); PROTEIN,URINE 3+ mg/dl (NEGATIVE); UGLUCOSE TRACE mg/dL (NEGATIVE); UROBILINOGEN,URINE 0.2 EU/dL (0.2)
--- NOTE | 2018-03-15 18:58 | NUR ---
MS RN CLOSING NOTES ASSISTED WITH FEEDING, GOOD APPETITE. STILL HAS ANASARCA, VS REMAINS STABLE, DENIES SOB. BLOOD SUGAR MONITORED WITH INSULIN PER PARAMETERS. MAINTAINED ON FLUID RESTRICTION 1200ML/DAY. BUMEX 8MG IV INFUSING AT 5ML/HR. LEGALLY BLIND, EXTENSIVE ASSIST. NPO MIDNIGHT, FOR PERMA CATH PLACEMENT TOMORROW AT 2:[address] PHILLIPS. PATIENTS -VERONICA CONSENTED PROCEDURE WITH ROUTE INSPECTOR AIDE. CONSENT FORM PLACE IN THE CHART. CALL LIGHT WITHIN REACH. WILL ENDORSE TO ONCOMING RN.
[2018-03-15 19:12] LABS: APPEARANCE,URINE SLIGHTLY CLOUDY (CLEAR)
[2018-03-15 19:13] LABS: BACTERIA,URINE Moderate /HPF (None Seen); SQUAMOUS EPITHELIAL CELL,UR Rare /HPF (None Seen); WBC,URINE 21-50 /HPF (0-3)
[2018-03-15 19:23] LABS: CREATININE, URINE 24.6 MG/DL (30.0-125.0)
[2018-03-15 19:36] LABS: URINE TOTAL PROTEIN 296.4 mg/dL (0-11.9)
[2018-03-15 19:39] LABS: EOSINOPHIL,URINE None Seen
--- NOTE | 2018-03-15 19:40 | NUR ---
RN OPENING NOTES RECEIVED REPORT FROM DAYSHIFT URIAH WELSH. FOUND Pt AWAKE, RESTING IN BED. Pt IS A/OX2, THAI SPEAKING ONLY. NO S/S OF ACUTE DISTRESS OR SOB NOTED. NO SIGNS OF PAIN NOTED. IV ACCESS ON RAC #18G, SL. ON 1200CC FLUID RESTRICTION DAILY. WILL BE NPO STARTING AT [facility] TONIGHT FOR PERMACATH PLACEMENT TOMORROW 03/16 AT 1430. CONSENT SIGNED DURING HI. SAFETY MEASURES IN PLACE. BED LOW, LOCKED, HOB ELEVATED, SIDE RAILS UP, CALL LIGHT AND BEDSIDE TABLE WITHIN REACH. BED ALARM ON. WILL CONTINUE TO MONITOR Pt THROUGHOUT THE NIGHT FOR SAFETY.
[2018-03-15 20:00] VITALS: BP 158/72
[2018-03-15] MEDS: KETOROLAC EYE 0.5% 3 ML BOTTLE EACHEYE SCH (20:52)
[2018-03-15 21:00] VITALS: BP 158/72
[2018-03-15] MEDS: ATORVASTATIN 40 MG TABLET PO SCH (21:00)
[2018-03-15] MEDS: LATANOPROST EYE DROP 0.005% 2.5 ML BOTTLE EACHEYE SCH (21:01)
[2018-03-15] MEDS: INSULIN GLARGINE, 100 UNIT/ML CARTRIDGE SQ SCH (21:05)
--- NOTE | 2018-03-15 22:05 | NUR ---
RN NOTES HS ACCUCHECK BG 204. ADMINISTERED SCHEDULED LANTUS 15UN.
[2018-03-16] MEDS: BRIMONIDINE TARTRATE OPHT SOLN 5 ML BOTTLE EACHEYE SCH ×3 (05:30→21:04)
[2018-03-16] MEDS: hydrALAZINE HCL 25 MG TABLET PO SCH ×3 (05:32→21:00)
[2018-03-16 06:25] LABS: BASOPHILS % (AUTO) 0.2 % (0.0-2.0); EOSINOPHILS % (AUTO) 1.1 % (0.0-6.0); HEMATOCRIT 29 % (39-51); HEMOGLOBIN 9.6 g/dL (13.5-17.5); LYMPHOCYTES # (AUTO) 0.5 /CMM (0.8-4.8); LYMPHOCYTES % (AUTO) 6.2 % (20.0-44.0); MEAN CORPUSCULAR HGB CONC 33 g/dl (31.0-36.0); MEAN CORPUSCULAR VOLUME 98 fL (80-96); MONOCYTES # (AUTO) 0.6 /CMM (0.1-1.30); MONOCYTES % (AUTO) 8.1 % (2.0-12.0); NEUTROPHILS # (AUTO) 6.6 /CMM (1.8-8.9); NEUTROPHILS % (AUTO) 84.4 % (43.0-81.0); PLATELET COUNT (AUTO) 177 /CMM (150-450); RDW COEFFICIENT OF VARIATION 18.2 (11.5-15.0); RED BLOOD CELL COUNT(AUTO) 2.98 MIL/uL (4.5-6.0); WHITE BLOOD COUNT (AUTO) 7.9 K/uL (4.3-11.0)
--- NOTE | 2018-03-16 06:30 | NUR ---
RN NOTES AC ACCUCHECK BG 149. NO INSULIN COVERAGE GIVEN AT THIS TIME DUE TO NPO STATUS FOR PROCEDURE TODAY.
[2018-03-16 06:33] LABS: ALBUMIN 2.3 g/dL (3.4-5.0); BILIRUBIN,TOTAL 0.4 mg/dL (0.2-1.0); CALCIUM, SERUM 8.5 mg/dL (8.5-10.1); CREATININE 3.7 mg/dL (0.6-1.3); MAGNESIUM 2.8 mg/dL (1.8-2.4); POTASSIUM 4.7 mmol/L (3.5-5.1); TOTAL PROTEIN, SERUM 6.2 g/dL (6.4-8.2)
--- NOTE | 2018-03-16 06:45 | NUR ---
RN CLOSING NOTES NO SIGNIFICANT CHANGES IN Pt's CONDITION. Pt REMAINS STABLE AT THIS TIME. NO S/S OF ACUTE DISTRESS OR SOB NOTED. ALL NEEDS MET AND ATTENDED TO. SAFETY MEASURES IN PLACE. Pt HAS BEEN NPO [place] FOR PERMACATH INSERTION TODAY AT 1430. CONSENT SIGNED, CHECKLIST DONE AND PLACED IN CHART. WILL ENDORSE TO DAYSHIFT RN FOR Pt's SARA.
[2018-03-16] MEDS: BLOOD SUGAR DIAGNOSTIC 1 EACH STRIP VI SCH ×4 (06:54→21:30)
[2018-03-16 08:00] VITALS: BP 155/72
--- NOTE | 2018-03-16 08:40 | NUR ---
MS RN NOTES PATIENT IN BED, AWAKE. BREATHING IN ROOM AIR, TOLERATING WELL WITH NO SOB. LEGALLY BLIND BOTH EYES, DENIES PAIN. CURRENTLY NPO, FOR PERMA CATH PLACEMENT TODAY 03/16/18. CALL LIGHT WITHIN REACH, BED LOW AND LOCKED, WILL CONT TO MONITOR.
[2018-03-16] MEDS: POLYVINYL ALCOHOL 15 ML BOTTLE EACHEYE SCH ×3 (08:57→16:34)
[2018-03-16] MEDS: ASPIRIN 81 MG TAB.CHEW PO SCH (08:58)
[2018-03-16] MEDS: DOCUSATE SODIUM 100 MG CAPSULE PO SCH ×2 (08:58→16:59)
[2018-03-16] MEDS: MAGNESIUM OXIDE 400 MG TABLET PO SCH ×2 (08:58→16:59)
[2018-03-16] MEDS: MULTIVIT, IRON, MIN NO. 8, FA 1 TAB PO SCH (08:59)
[2018-03-16] MEDS: CHOLECALCIFEROL 1,000 UNIT TABLET (VIT D3) PO SCH (08:59)
[2018-03-16] MEDS: POLYETHYLENE GLYCOL 3350 17 GM POWD.PACK PO SCH (08:59)
[2018-03-16] MEDS: ISOSORBIDE MONONITRATE 20 MG TABLET PO SCH (09:00)
[2018-03-16] MEDS: METOLAZONE 2.5 MG TABLET PO SCH (09:00)
[2018-03-16] MEDS: TIMOLOL MAL/DORZOLAM HCL OPHTH 10 ML BOTTLE EACHEYE SCH ×2 (09:02→16:39)
[2018-03-16] MEDS: KETOROLAC EYE 0.5% 3 ML BOTTLE EACHEYE SCH ×2 (09:07→20:11)
[2018-03-16] MEDS: TIMOLOL 0.5% SOLN OPHTH 5 ML BOTTLE EACHEYE SCH ×2 (09:12→16:37)
[2018-03-16] MEDS: Z GUARD REMEDY 2 OZ OINT TP SCH (11:06)
[2018-03-16] MEDS: INSULIN REGULAR, HUMAN 100 UNIT/ML 3 ML VIAL SQ PRN ×2 (12:46→16:59)
[2018-03-16] MEDS ORDERED: LIDOCAINE 0.5% HCL 50 ML VIAL ONE (14:05)
[2018-03-16] MEDS ORDERED: ANESTHESIA TRAY IN PYXIS 1 EA TRAY MC ONE (14:05)
[2018-03-16] MEDS ORDERED: HEPARIN SODIUM, PORCINE 1,000 UNIT/ML VIAL ONE (14:05)
[2018-03-16] MEDS ORDERED: FENTANYL PF 100MCG/2ML AMPUL ONE (14:41)
--- NOTE | 2018-03-16 14:41 | NUR ---
PATIENT TRANSFERRED TO OR FOR PERMA CATH PLACEMENT BY DR. PHILLIPS. PROCEDURE CONSENTED BY -HIGINIO.
[2018-03-16 16:00] VITALS: BP 143/73
[2018-03-16] MEDS: CEFTRIAXONE 1 G in IV NS 0.9% 50 ML IV SCH (16:09)
--- NOTE | 2018-03-16 18:37 | NUR ---
MS RN CLOSING NOTES PATIENT IS A/O X2, ICELANDIC SPEAKING ONLY. S/P PERMA CATH PLACEMENT BY DT. PHILLIPS TODAY. RIGHT CHEST WALL PERMA CATH INTACT, INCISION COVERED WITH GAUZE. NOTED GAUZE SATURATED WITH MINIMAL AMOUNT OF BLOOD. ON SUPPLEMENTAL OXYGEN AT 2L VIA NC POST SURGERY. AFEBRILE DURING THE SHIFT. WILL START DIALYSIS TREATMENT TODAY 03/16/18, ORDERED PATIENT CODE STATUS CHANGED TO FULL CODE FROM 03/16/18 TO 03/17/18 AND BACK TO DNR 03/17/18 AT 1441. CHARGED NURSE MADE AWARE. WILL ENDORSE TO ONCOMING RN.
--- NOTE | 2018-03-16 19:20 | NUR ---
MS RN INITIAL NOTES: Received patient sleeping on bed, but easily arousable. Family at bedside. Alert, oriented x 2, divehi spaeking only. Permacath on RCW, covered with gauze, moderately soaked with blood. For HD this PM. On supplemental oxygen at 2L via NC. Call boyd within patient's reach. Bed in low locked position. Patient stable as endorsed by the morning shift RN.
[2018-03-16 20:30] VITALS: BP 150/73
[2018-03-16 21:19] VITALS: BP 150/73
[2018-03-16] MEDS: *INSULIN REGULAR(HUMULIN R)HUM 100 UNIT/ML VIAL SQ PRN (21:34)
--- NOTE | 2018-03-16 21:34 | NUR ---
RN NOTES: BSL 102. No insulin coverage as per sliding scale
[2018-03-16] MEDS: LATANOPROST EYE DROP 0.005% 2.5 ML BOTTLE EACHEYE SCH (21:36)
[2018-03-16] MEDS: INSULIN GLARGINE, 100 UNIT/ML CARTRIDGE SQ SCH (22:00)
--- NOTE | 2018-03-16 22:00 | NUR ---
RN NOTES: Patient's apresoline not given as patient is currently on HD. Patient's heart rate is also below 60; pulse is 54. Preceptor Elis aware
[2018-03-16] MEDS: ATORVASTATIN 40 MG TABLET PO SCH (22:09)
--- NOTE | 2018-03-16 22:13 | NUR ---
RN NOTES: BSL 102. Lantus not given; patient refused
--- NOTE | 2018-03-16 22:40 | NUR ---
RN NOTES: Noticed that Permacath on R) chestwall dressing is soaked with blood, asked the HD RN regarding change of dressing. Stated that dressing will be left as is since permacath is new. To change only if blood will leak to the back. As of this time, leave it as is and have dressing change in the morning.
[2018-03-16 22:45] VITALS: BP 153/79
--- NOTE | 2018-03-16 22:45 | NUR ---
RN NOTES: Patient had hemodialysis. 1000mL out as per HD nurse. Patient tolerated HD well. Patient stable
[2018-03-17 05:30] VITALS: BP 166/79
[2018-03-17] MEDS: BRIMONIDINE TARTRATE OPHT SOLN 5 ML BOTTLE EACHEYE SCH ×3 (05:31→20:36)
[2018-03-17] MEDS: hydrALAZINE HCL 25 MG TABLET PO SCH ×3 (05:32→20:19)
[2018-03-17 06:05] LABS: BASOPHILS % (AUTO) 0.2 % (0.0-2.0); EOSINOPHILS % (AUTO) 2.1 % (0.0-6.0); HEMATOCRIT 28 % (39-51); HEMOGLOBIN 9.1 g/dL (13.5-17.5); LYMPHOCYTES # (AUTO) 0.6 /CMM (0.8-4.8); MEAN CORPUSCULAR HGB CONC 33 g/dl (31.0-36.0); MEAN CORPUSCULAR VOLUME 99 fL (80-96); MONOCYTES # (AUTO) 0.6 /CMM (0.1-1.30); MONOCYTES % (AUTO) 7.6 % (2.0-12.0); NEUTROPHILS # (AUTO) 6.2 /CMM (1.8-8.9); NEUTROPHILS % (AUTO) 82.1 % (43.0-81.0); PLATELET COUNT (AUTO) 124 /CMM (150-450); RDW COEFFICIENT OF VARIATION 17.9 (11.5-15.0); RED BLOOD CELL COUNT(AUTO) 2.81 MIL/uL (4.5-6.0); WHITE BLOOD COUNT (AUTO) 7.6 K/uL (4.3-11.0)
[2018-03-17 06:22] LABS: CALCIUM, SERUM 7.9 mg/dL (8.5-10.1); CREATININE 2.7 mg/dL (0.6-1.3); MAGNESIUM 2.6 mg/dL (1.8-2.4); PHOSPHORUS 3.8 mg/dL (2.5-4.9); POTASSIUM 4.3 mmol/L (3.5-5.1)
[2018-03-17] MEDS: BLOOD SUGAR DIAGNOSTIC 1 EACH STRIP VI SCH ×4 (06:47→22:15)
--- NOTE | 2018-03-17 06:47 | NUR ---
MS RN CLOSING NOTES: Patient in bed, asleep, but easily arousable. Alert, oriented x 2. Only speaks east timorese. Breathing even and unlabored. No distress noted. Patient urinating in urinal, emptied 500 mL of clear dark yellow urine. Permacath dressing on R chest wall soaked in blood, cleaned it but didn't change as per HD nurse, leave it for the morning as it is still fresh. Preceptor Elis aware. All needs attended to. All due medications given as ordered. BSL 69, no insulin coverage as per sliding scale. patient given applesauce to eat. Call boyd within reach. Bed in low locked position. Will endorse SARA to AM shift RN. Addendum: 03/17/18 at 0700 by TRINH JEWELL RN BSL rechecked, 72.
[2018-03-17 08:00] VITALS: BP 149/72
--- NOTE | 2018-03-17 08:00 | NUR ---
ms rn received on bed, awake,alert,oriented x2,not in any form of distress, respirations even and unlabored,no sob noted, s/p cvc placement, prateek w/ dressing soaked w/ blood, will change dressing.denies pain,no distress noted.
--- NOTE | 2018-03-17 09:00 | NUR ---
ms sun breakfast served,due meds given,tolerated well.
[2018-03-17] MEDS: POLYETHYLENE GLYCOL 3350 17 GM POWD.PACK PO SCH (09:03)
[2018-03-17] MEDS: MULTIVIT, IRON, MIN NO. 8, FA 1 TAB PO SCH (09:04)
[2018-03-17] MEDS: ISOSORBIDE MONONITRATE 20 MG TABLET PO SCH (09:04)
[2018-03-17] MEDS: METOLAZONE 2.5 MG TABLET PO SCH (09:04)
[2018-03-17] MEDS: MAGNESIUM OXIDE 400 MG TABLET PO SCH ×2 (09:04→16:43)
[2018-03-17] MEDS: ASPIRIN 81 MG TAB.CHEW PO SCH (09:04)
[2018-03-17] MEDS: CHOLECALCIFEROL 1,000 UNIT TABLET (VIT D3) PO SCH (09:04)
[2018-03-17] MEDS: DOCUSATE SODIUM 100 MG CAPSULE PO SCH ×2 (09:04→16:50)
[2018-03-17] MEDS: TIMOLOL 0.5% SOLN OPHTH 5 ML BOTTLE EACHEYE SCH ×2 (09:05→16:43)
[2018-03-17] MEDS: KETOROLAC EYE 0.5% 3 ML BOTTLE EACHEYE SCH ×2 (09:06→20:08)
[2018-03-17] MEDS: TIMOLOL MAL/DORZOLAM HCL OPHTH 10 ML BOTTLE EACHEYE SCH ×2 (09:06→16:43)
[2018-03-17] MEDS: POLYVINYL ALCOHOL 15 ML BOTTLE EACHEYE SCH ×3 (09:06→16:43)
[2018-03-17] MEDS: Z GUARD REMEDY 2 OZ OINT TP SCH (09:12)
--- NOTE | 2018-03-17 09:30 | NUR ---
ms rn dressing changed,clean and dry now, but still bleeding inside dressing.
--- NOTE | 2018-03-17 12:00 | NUR ---
ms sun b/s - 114 - no coverage given.
--- NOTE | 2018-03-17 12:30 | NUR ---
ms furnace converter done w/ 2 liters out, apresoline held due to low b/p 125/45.
[2018-03-17] MEDS: CEFTRIAXONE 1 G in IV NS 0.9% 50 ML IV SCH (14:42)
--- NOTE | 2018-03-17 15:00 | NUR ---
RECEIVED ENDORSEMENT FROM RN, PT COMFORTABLE, ALL NEEDS MET AT THIS TIME.
[2018-03-17 16:00] VITALS: BP 146/72
--- NOTE | 2018-03-17 18:01 | NUR ---
MSRN CLOSING NOTES. PT REMAINS A&0X2, BLIND, MALAY SPEAKING. PT TOLERATING ROOM AIR WITHOUT SOB OR RESP DISTRESS. PT DENIES PAIN. PT WITH IVC AT R HAND G22 INTACT AND SL. PT -1999 WITH HD, INTAKE 725. HD CATH AT L CHEST WALL WITH NEW DRESSING AND EVIDENCE OF PREVIOUS BLEEDING, ENDORSED TO LEAVE FOR HD NURSE IN AM. PT BED IN LOWEST LOCKED POSITION WITH HANDRAILSX4 AND CALL PEREZ WITHIN REACH. ALL DAY NURSE DUTIES ATTENDED TO AND PT IS WITHOUT CONCERN OR COMPLAINT TA THIS TIME. WILL ENDORSE TO NIGHT NURSE AT BEDSIDE FOR SARA.
--- NOTE | 2018-03-17 19:05 | NUR ---
MS RN INITIAL NOTED: Received patient in bed, asleep, but easily arousable. Alert, oriented x 2, speaks kiswahili only. On 2L supplemental O2 via nasal cannula. Breathing even and unlabored. No acute distress noted. Dressing on right chest wall, soaked with blood. As per AM RN, dressing was changed and patient had dialysis. Dressing should be left and have an HD nurse change it in the morning. Bed in low locked position, Call boyd within reach. Patient stable as endorsed by the morning shift RN.
[2018-03-17 20:00] VITALS: BP 150/70
--- NOTE | 2018-03-17 21:30 | NUR ---
RN NOTES: BSL 159. Patient refused insulin
[2018-03-17] MEDS: LATANOPROST EYE DROP 0.005% 2.5 ML BOTTLE EACHEYE SCH (21:36)
[2018-03-17] MEDS: ATORVASTATIN 40 MG TABLET PO SCH (21:36)
[2018-03-17] MEDS: INSULIN GLARGINE, 100 UNIT/ML CARTRIDGE SQ SCH (22:00)
--- NOTE | 2018-03-17 22:10 | NUR ---
RN NOTES INFORMED SARAH REYES-BERLIN THAT PT. PERMACATH IS BLEEDING AND NEEDS AN ORDER TO CHANGE DRESSING TO SURGISEAL...GOT AN ORDER TO CHANGE DRESSING TO SURGISEAL TO STOP THE BLEEDING, ORDER NOTED AND CARRIED OUT
[2018-03-17] MEDS: *INSULIN REGULAR(HUMULIN R)HUM 100 UNIT/ML VIAL SQ PRN (22:16)
--- NOTE | 2018-03-17 22:18 | NUR ---
RN MS NOTES: BSL 159. Patient refused lantus, as well
[2018-03-17] MEDS ORDERED: GELATIN SPONGE,ABSORBABLE 1 SPONGE SPONGE TP ONE (23:52)
--- NOTE | 2018-03-18 00:06 | NUR ---
RN NOTES PT. PERMA CATH SITE WAS BLEEDING. ICU CHARGE NURSE CAME AND CHANGE THE DRESSING WITH SURGISEAL TO STOP THE BLEEDING. WILL CONTINUE TO MONITOR
--- NOTE | 2018-03-18 01:00 | NUR ---
RN NOTES CHECK PT. PERMA CATH , NO BLEEDING NOTED
[2018-03-18] MEDS: BRIMONIDINE TARTRATE OPHT SOLN 5 ML BOTTLE EACHEYE SCH ×3 (05:12→20:29)
[2018-03-18] MEDS: hydrALAZINE HCL 25 MG TABLET PO SCH ×3 (05:13→21:38)
--- NOTE | 2018-03-18 06:15 | NUR ---
MS RN NOTES: Patient refused accucheck and wool shearing supervisor insulin.
--- NOTE | 2018-03-18 06:38 | NUR ---
MS RN CLOSING NOTES: Patient still sleeping in bed, easily arousable. Breathing even and unlabored. No distress noted. On O2 via NC saturating 96-98%. Permacath on R) chestwall intact, no bleeding noted. No complaints of pain as of this time. All needs attended to. All due meds given as ordered. Call boyd within reach. Bed in low locked position. Will endorse SARA to AM shift RN
[2018-03-18] MEDS: BLOOD SUGAR DIAGNOSTIC 1 EACH STRIP VI SCH ×4 (06:46→21:46)
[2018-03-18 07:10] LABS: BASOPHILS % (AUTO) 0.3 % (0.0-2.0); EOSINOPHILS % (AUTO) 2.2 % (0.0-6.0); HEMATOCRIT 23 % (39-51); HEMOGLOBIN 7.6 g/dL (13.5-17.5); LYMPHOCYTES # (AUTO) 0.7 /CMM (0.8-4.8); LYMPHOCYTES % (AUTO) 11.1 % (20.0-44.0); MEAN CORPUSCULAR HGB CONC 33 g/dl (31.0-36.0); MEAN CORPUSCULAR VOLUME 99 fL (80-96); MONOCYTES # (AUTO) 0.7 /CMM (0.1-1.30); MONOCYTES % (AUTO) 11.3 % (2.0-12.0); NEUTROPHILS # (AUTO) 4.7 /CMM (1.8-8.9); NEUTROPHILS % (AUTO) 75.1 % (43.0-81.0); PLATELET COUNT (AUTO) 89 /CMM (150-450); RED BLOOD CELL COUNT(AUTO) 2.38 MIL/uL (4.5-6.0); WHITE BLOOD COUNT (AUTO) 6.2 K/uL (4.3-11.0)
--- NOTE | 2018-03-18 07:31 | NUR ---
RN NOTES BLOOD SUGAR CHECKED, NOTED AT 109MG/DL NO INSULIN COVERAGE NEEDED AT THIS TIME WILL CONTINUE TO MONITOR
[2018-03-18] MEDS: INSULIN REGULAR, HUMAN 100 UNIT/ML 3 ML VIAL SQ PRN ×3 (07:33→17:06)
--- NOTE | 2018-03-18 07:47 | NUR ---
RN OPENING NOTES PATIENT RECEIVED SLEEPING IN BED, EASILY AROUSABLE DURING CARE, A/0 X2 RESPIRATIONS EVEN AND UNLABORED.RESPIRATIONS EVEN AND UNLABORED, DENIES ANY PAIN OR DISCOMFORT AT THIS TIME. DENIES ANY PAIN OR DISCOMFORT AT THIS TIME. IV ACCESS PATENT AND INTACT NO REDNESS OR INFILTRATION NOTED. SAFETY MEASURES IN PLACE, CALL LIGHT WITHIN EASY REACH WILL CONTINUE TO MONITOR
[2018-03-18 08:00] VITALS: BP 119/57
[2018-03-18 08:28] LABS: EOSINOPHILS % (MANUAL) 2 % (0-4); LYMPHOCYTES % (MANUAL) 9 % (16-48); MONOCYTES % (MANUAL) 8 % (0-11.0); NEUTROPHILS % (MANUAL) 81 (42-76)
[2018-03-18] MEDS: MULTIVIT, IRON, MIN NO. 8, FA 1 TAB PO SCH (09:15)
[2018-03-18] MEDS: CHOLECALCIFEROL 1,000 UNIT TABLET (VIT D3) PO SCH (09:15)
[2018-03-18] MEDS: ISOSORBIDE MONONITRATE 20 MG TABLET PO SCH (09:15)
[2018-03-18] MEDS: METOLAZONE 2.5 MG TABLET PO SCH (09:15)
[2018-03-18] MEDS: POLYETHYLENE GLYCOL 3350 17 GM POWD.PACK PO SCH (09:16)
[2018-03-18] MEDS: ASPIRIN 81 MG TAB.CHEW PO SCH (09:16)
[2018-03-18] MEDS: MAGNESIUM OXIDE 400 MG TABLET PO SCH ×2 (09:16→16:55)
[2018-03-18] MEDS: DOCUSATE SODIUM 100 MG CAPSULE PO SCH ×2 (09:16→16:55)
[2018-03-18] MEDS: Z GUARD REMEDY 2 OZ OINT TP SCH (09:16)
[2018-03-18] MEDS: POLYVINYL ALCOHOL 15 ML BOTTLE EACHEYE SCH ×3 (09:26→16:58)
[2018-03-18] MEDS: TIMOLOL 0.5% SOLN OPHTH 5 ML BOTTLE EACHEYE SCH ×2 (09:26→16:59)
[2018-03-18] MEDS: TIMOLOL MAL/DORZOLAM HCL OPHTH 10 ML BOTTLE EACHEYE SCH ×2 (09:27→16:58)
[2018-03-18] MEDS: KETOROLAC EYE 0.5% 3 ML BOTTLE EACHEYE SCH ×2 (09:27→20:29)
[2018-03-18 11:12] LABS: IRON, SERUM 34 ug/dl (50-175); TOTAL IRON BINDING CAPACITY 203 ug/dl (250-450)
[2018-03-18 11:28] LABS: FERRITIN 107 ng/mL (8-388)
[2018-03-18] MEDS: CEFTRIAXONE 1 G in IV NS 0.9% 50 ML IV SCH (14:53)
[2018-03-18 16:00] VITALS: BP 151/71
--- NOTE | 2018-03-18 18:47 | NUR ---
RN CLOSING NOTES PATIENT AWAKE ALERT AND VERBALLY RESPONSIVE, A/0 X2 RESPIRATIONS EVEN AND UNLABORED.RESPIRATIONS EVEN AND UNLABORED, DENIES ANY PAIN OR DISCOMFORT AT THIS TIME. DENIES ANY PAIN OR DISCOMFORT AT THIS TIME. IV ACCESS PATENT AND INTACT NO REDNESS OR INFILTRATION NOTED.HD CATHETER DRESSING CHANGE. SAFETY MEASURES IN PLACE, CALL LIGHT WITHIN EASY REACH WILL CONTINUE TO MONITOR AND ENDORSE TO NEXT SHIFT FOR CONTINUITY OF CARE
--- NOTE | 2018-03-18 19:21 | NUR ---
MS RN OPENING NOTE RECEIVE PATIENT AWAKE IN BED, A/O X 2 SETSWANA SPEAKING NO FACIAL GRIMACING NOTED FOR PAIN. NO SOB OR DISTRESS NOTED, CALL LIGHT WITHIN REACH. SAFETY MEASURES IMPLEMENTED. WILL CONTINUE TO MONITOR THROUGHOUT SHIFT.
[2018-03-18 20:00] VITALS: BP 154/74
[2018-03-18] MEDS: ATORVASTATIN 40 MG TABLET PO SCH (21:38)
[2018-03-18] MEDS: LATANOPROST EYE DROP 0.005% 2.5 ML BOTTLE EACHEYE SCH (21:40)
[2018-03-18] MEDS: INSULIN GLARGINE, 100 UNIT/ML CARTRIDGE SQ SCH (21:48)
[2018-03-18] MEDS: *INSULIN REGULAR(HUMULIN R)HUM 100 UNIT/ML VIAL SQ PRN (21:49)
[2018-03-19] MEDS: BRIMONIDINE TARTRATE OPHT SOLN 5 ML BOTTLE EACHEYE SCH ×3 (04:41→21:16)
[2018-03-19] MEDS: hydrALAZINE HCL 25 MG TABLET PO SCH ×3 (04:42→20:24)
[2018-03-19] MEDS: BLOOD SUGAR DIAGNOSTIC 1 EACH STRIP VI SCH ×4 (05:40→21:22)
[2018-03-19] MEDS: INSULIN REGULAR, HUMAN 100 UNIT/ML 3 ML VIAL SQ PRN ×3 (05:41→21:23)
--- NOTE | 2018-03-19 06:18 | NUR ---
MS RN CLOSING NOTES PT COMFORTABLY ASLEEP AND EASILY AWAKEN, IN STABLE CONDITION. ON 2LPM VIA NC 02 SAT 96% RESPIRATION EVEN AND UNLABORED. KEPT CLEAN AND DRY AND COMFORTABLE, ALL NURSING CARE RENDERED. NEEDS ATTENDED AND ANTICIPATED, GOOD SKIN CARE PROVIDED. REINFORCED, CHANGE DRESSING TO THE RCW PERMACATH, GOOD DRESSING CARE PROVIDED. FREQUENT VISUAL CHECK DONE FOR SAFETY EVERY 2 HOURS. ON LOW BED AT ALL TIMES TO ENSURE SAFETY. SAFE HAZARD FREE ENVIRONMENT PROVIDED. NO COMPLAINS OF PAIN. ASSIST REPOSITION EVERY 2 HOURS. CALL LIGHT WITHIN EASY TO REACH. WILL ENDORSE NEXT SHIFT CONTINUITY OF CARE.
--- NOTE | 2018-03-19 07:25 | NUR ---
RN OPENING NOTES RECEIVED PATIENT SLEEPING IN BED, EASILY AROUSABLE, A/O X2. NO ACUTE DISTRESS, NO SOB. DENIES ANY PAIN OR DISCOMFORT AT THIS TIME. IV ACCESS PATENT AND INTACT. RCW PERMACATH NOTED, REINFORCED DRESSING INTACT AND DRY. SAFETY MEASURES IN PLACE, BED IN LOW/LOCKED POSITION, SIDERAILS UP, CALL LIGHT WITHIN EASY REACH. WILL CONTINUE TO MONITOR ACCORDINGLY.
[2018-03-19 08:00] VITALS: BP 141/69
[2018-03-19] MEDS: POLYVINYL ALCOHOL 15 ML BOTTLE EACHEYE SCH ×3 (08:16→16:53)
[2018-03-19] MEDS: TIMOLOL MAL/DORZOLAM HCL OPHTH 10 ML BOTTLE EACHEYE SCH ×2 (08:17→16:53)
[2018-03-19] MEDS: KETOROLAC EYE 0.5% 3 ML BOTTLE EACHEYE SCH ×2 (08:17→20:56)
[2018-03-19] MEDS: TIMOLOL 0.5% SOLN OPHTH 5 ML BOTTLE EACHEYE SCH ×2 (08:17→16:50)
[2018-03-19] MEDS: ASPIRIN 81 MG TAB.CHEW PO SCH (08:23)
[2018-03-19] MEDS: MAGNESIUM OXIDE 400 MG TABLET PO SCH ×2 (08:23→17:01)
[2018-03-19] MEDS: DOCUSATE SODIUM 100 MG CAPSULE PO SCH ×2 (08:24→17:01)
[2018-03-19] MEDS: MULTIVIT, IRON, MIN NO. 8, FA 1 TAB PO SCH (08:24)
[2018-03-19] MEDS: ISOSORBIDE MONONITRATE 20 MG TABLET PO SCH (08:24)
[2018-03-19] MEDS: METOLAZONE 2.5 MG TABLET PO SCH (08:26)
[2018-03-19] MEDS: CHOLECALCIFEROL 1,000 UNIT TABLET (VIT D3) PO SCH (08:26)
[2018-03-19] MEDS: POLYETHYLENE GLYCOL 3350 17 GM POWD.PACK PO SCH (08:27)
[2018-03-19] MEDS: Z GUARD REMEDY 2 OZ OINT TP SCH (08:33)
--- NOTE | 2018-03-19 09:00 | NUR ---
NO SCHEDULED HD TODAY PER MARIBELLORTHODONTIST VICE PRESIDENT RCW PERMACATH DRESSING CHANGED BY MARIBELL,RN WILL MONIOTR FOR BLEEDING
[2018-03-19 09:42] LABS: BASOPHILS % (AUTO) 0.4 % (0.0-2.0); HEMATOCRIT 24 % (39-51); HEMOGLOBIN 7.7 g/dL (13.5-17.5); LYMPHOCYTES # (AUTO) 0.7 /CMM (0.8-4.8); LYMPHOCYTES % (AUTO) 10.7 % (20.0-44.0); MEAN CORPUSCULAR HGB CONC 33 g/dl (31.0-36.0); MEAN CORPUSCULAR VOLUME 98 fL (80-96); MONOCYTES # (AUTO) 0.5 /CMM (0.1-1.30); MONOCYTES % (AUTO) 8.3 % (2.0-12.0); NEUTROPHILS # (AUTO) 5.2 /CMM (1.8-8.9); NEUTROPHILS % (AUTO) 78.6 % (43.0-81.0); PLATELET COUNT (AUTO) 67 /CMM (150-450); RDW COEFFICIENT OF VARIATION 17.8 (11.5-15.0); WHITE BLOOD COUNT (AUTO) 6.6 K/uL (4.3-11.0)
[2018-03-19 09:55] LABS: CALCIUM, SERUM 7.5 mg/dL (8.5-10.1); CREATININE 2.3 mg/dL (0.6-1.3); MAGNESIUM 2.5 mg/dL (1.8-2.4); PHOSPHORUS 3.1 mg/dL (2.5-4.9); POTASSIUM 3.9 mmol/L (3.5-5.1)
[2018-03-19] MEDS ORDERED: EPOETIN ALFA (10,000 UNIT) 10,000 UNIT/ML VIAL IV ONE (11:00)
[2018-03-19 11:10] LABS: EOSINOPHILS % (MANUAL) 1 % (0-4); LYMPHOCYTES % (MANUAL) 8 % (16-48); MONOCYTES % (MANUAL) 4 % (0-11.0); NEUTROPHILS % (MANUAL) 87 (42-76)
[2018-03-19] MEDS ORDERED: GELATIN SPONGE,ABSORBABLE 1 SPONGE SPONGE TP ONE (13:25)
[2018-03-19] MEDS: CEFTRIAXONE 1 G in IV NS 0.9% 50 ML IV SCH (15:10)
[2018-03-19 16:00] VITALS: BP 131/67
--- NOTE | 2018-03-19 17:45 | NUR ---
BS 223, 6 UNITS REGULAR INSULIN GIVEN ORDERED PER SLIDING SCALE
--- NOTE | 2018-03-19 18:32 | NUR ---
RN CLOSING NOTES PATIENT IN STABLE CONDITION. ALL NEEDS ATTENDED AND PROVIDED. TURNED AND REPOSITIONED PATIENT EVERY 2HRS NEEDED. RCW PERMACATH DRESSING CHANGED WITH GELFOAM, C/D/I. KEPT PATIENT SAFE AND COMFORTABLE. BED IN LOW/LOCKED POSITION, SIDERAILS UPX2, HOB ELEVATED, CALLL LIGHT IN REACH. WILL ENDORSED TO NIGHT RN FOR SARA.
--- NOTE | 2018-03-19 19:00 | NUR ---
MS RN OPENING NOTE RECEIVE PATIENT AWAKE IN BED, A/O X 2 SPANIS SPEAKING STABLE NO FACIAL GRIMACING NOTED FOR PAIN. NO SOB OR DISTRESS NOTED, CALL LIGHT WITHIN REACH. SAFETY MEASURES IMPLEMENTED. WILL CONTINUE TO MONITOR THROUGHOUT SHIFT.
[2018-03-19 20:00] VITALS: BP_SYST 111; BP_SYST 137; BP_SYST 157; BP_DIAS 68; BP_DIAS 77
[2018-03-19] MEDS: LATANOPROST EYE DROP 0.005% 2.5 ML BOTTLE EACHEYE SCH (21:16)
[2018-03-19] MEDS: ATORVASTATIN 40 MG TABLET PO SCH (21:16)
[2018-03-19] MEDS: INSULIN GLARGINE, 100 UNIT/ML CARTRIDGE SQ SCH (21:22)
--- NOTE | 2018-03-19 21:23 | NUR ---
MS RN NOTES INSULIN GIVEN 3 UNITS 196 MG/DL AT 2123 R INSULIN HS WITNESS BY LICENSED NURSE
[2018-03-20] MEDS: BRIMONIDINE TARTRATE OPHT SOLN 5 ML BOTTLE EACHEYE SCH ×3 (05:08→21:03)
[2018-03-20] MEDS: hydrALAZINE HCL 25 MG TABLET PO SCH ×3 (05:26→21:02)
[2018-03-20] MEDS: INSULIN REGULAR, HUMAN 100 UNIT/ML 3 ML VIAL SQ PRN (05:27)
[2018-03-20] MEDS: BLOOD SUGAR DIAGNOSTIC 1 EACH STRIP VI SCH ×4 (05:27→21:12)
--- NOTE | 2018-03-20 06:34 | NUR ---
MS RN CLOSING NOTES ASLEEP AND EASILY AWAKEN, IN STABLE CONDITION. NO COMPLAINS OF PAIN.ON 2LPM VIA NC 02 SAT 99% RESPIRATION EVEN AND UNLABORED. KEPT CLEAN AND DRY AND COMFORTABLE, ALL NURSING CARE RENDERED. NEEDS ATTENDED AND ANTICIPATED, GOOD SKIN CARE PROVIDED. GOOD DRESSING OF RCW CARE PROVIDED. FREQUENT VISUAL CHECK DONE FOR SAFETY EVERY 2 HOURS. ON LOW BED AT ALL TIMES TO ENSURE SAFETY. SAFE HAZARD FREE ENVIRONMENT PROVIDED. ASSIST REPOSITION EVERY 2 HOURS. CALL LIGHT WITHIN EASY TO REACH. WILL ENDORSE NEXT SHIFT CONTINUITY OF CARE.
[2018-03-20] MEDS: *INSULIN REGULAR(HUMULIN R)HUM 100 UNIT/ML VIAL SQ PRN ×2 (06:46→21:13)
[2018-03-20 07:03] LABS: CALCIUM, SERUM 8.2 mg/dL (8.5-10.1); CREATININE 2.5 mg/dL (0.6-1.3); MAGNESIUM 2.9 mg/dL (1.8-2.4); PHOSPHORUS 3.7 mg/dL (2.5-4.9)
--- NOTE | 2018-03-20 07:32 | NUR ---
RN OPENING NOTES RECEIVED PATIENT SLEEPING IN BED, EASILY AROUSABLE, A/O X2. NO ACUTE DISTRESS, NO SOB. DENIES ANY PAIN OR DISCOMFORT AT THIS TIME. IV ACCESS PATENT AND INTACT. RCW PERMACATH IN PLACE, DRESSING C/D/I. SAFETY MEASURES IN PLACE, BED IN LOW/LOCKED POSITION, SIDERAILS UP, CALL LIGHT WITHIN EASY REACH. WILL CONTINUE TO MONITOR ACCORDINGLY.
[2018-03-20 08:00] VITALS: BP 132/72
[2018-03-20] MEDS: ASPIRIN 81 MG TAB.CHEW PO SCH (09:07)
[2018-03-20] MEDS: DOCUSATE SODIUM 100 MG CAPSULE PO SCH ×2 (09:07→16:19)
[2018-03-20] MEDS: MULTIVIT, IRON, MIN NO. 8, FA 1 TAB PO SCH (09:07)
[2018-03-20] MEDS: ISOSORBIDE MONONITRATE 20 MG TABLET PO SCH (09:07)
[2018-03-20] MEDS: MAGNESIUM OXIDE 400 MG TABLET PO SCH ×2 (09:07→16:20)
[2018-03-20] MEDS: METOLAZONE 2.5 MG TABLET PO SCH (09:08)
[2018-03-20] MEDS: CHOLECALCIFEROL 1,000 UNIT TABLET (VIT D3) PO SCH (09:08)
[2018-03-20] MEDS: TIMOLOL 0.5% SOLN OPHTH 5 ML BOTTLE EACHEYE SCH ×2 (09:13→16:11)
[2018-03-20] MEDS: KETOROLAC EYE 0.5% 3 ML BOTTLE EACHEYE SCH ×2 (09:14→20:55)
[2018-03-20] MEDS: POLYVINYL ALCOHOL 15 ML BOTTLE EACHEYE SCH ×3 (09:14→16:10)
[2018-03-20] MEDS: TIMOLOL MAL/DORZOLAM HCL OPHTH 10 ML BOTTLE EACHEYE SCH ×2 (09:14→16:11)
[2018-03-20] MEDS: POLYETHYLENE GLYCOL 3350 17 GM POWD.PACK PO SCH (09:15)
[2018-03-20] MEDS: Z GUARD REMEDY 2 OZ OINT TP SCH (09:18)
[2018-03-20] MEDS ORDERED: GELATIN SPONGE,ABSORBABLE 1 SPONGE SPONGE TP ONE (11:11)
--- NOTE | 2018-03-20 13:27 | NUR ---
HEMODIALYSIS SCHEDULED TODAY, BP MEDS HELD.
[2018-03-20] MEDS: CEFTRIAXONE 1 G in IV NS 0.9% 50 ML IV SCH (13:40)
--- NOTE | 2018-03-20 15:59 | NUR ---
HEMODIALYSIS FINISHED, 1500 ML OUTPUT, PATIENT TOLERATED WELL. PATIENT IN STABLE CONDITION. VS WNL. WILL MONITOR ACCORDINGLY.
[2018-03-20 16:00] VITALS: BP 142/71
[2018-03-20 16:01] VITALS: BP 142/71
[2018-03-20] MEDS ORDERED: CELLULOSE,OXIDIZED 1 PKT EACH MC ONE (17:00)
--- NOTE | 2018-03-20 17:30 | NUR ---
PATIENT REFUSED ACCUCHECK. EXPLAINED RISK BUT STILL REFUSED. WILL MONITOR ACCORDINGLY.
--- NOTE | 2018-03-20 19:40 | NUR ---
RN CLOSING NOTES PATIENT IN STABLE CONDITION. ALL NEEDS ATTENDED AND PROVIDED. TURNED AND REPOSITIONED PATIENT EVERY 2HRS NEEDED. RCW PERMACATH DRESSING CHANGED, C/D/I. KEPT PATIENT SAFE AND COMFORTABLE. BED IN LOW/LOCKED POSITION, SIDERAILS UPX2, HOB ELEVATED, CALL LIGHT IN REACH. ENDORSED TO NIGHT RN FOR SARA.
--- NOTE | 2018-03-20 19:47 | NUR ---
MS RN NOTES Patient received resting in bed, comfortable, easily arousable. Not in any type of distress. No complaints of pain at the moment. HOB slightly elevated. On continuous monitoring for HD cath site for any signs of bleeding or infection. Will continue to monitor and assess patient.
[2018-03-20 20:00] VITALS: BP 139/70
[2018-03-20] MEDS: LATANOPROST EYE DROP 0.005% 2.5 ML BOTTLE EACHEYE SCH (21:02)
[2018-03-20] MEDS: ATORVASTATIN 40 MG TABLET PO SCH (21:03)
[2018-03-20] MEDS: INSULIN GLARGINE, 100 UNIT/ML CARTRIDGE SQ SCH (21:12)
--- NOTE | 2018-03-21 00:40 | NUR ---
MS RN NOTES HD cath dressing changed by OSCAR CN with surgicel, gauze and covered with transparent film dressing.
[2018-03-21] MEDS: hydrALAZINE HCL 25 MG TABLET PO SCH ×3 (05:02→21:04)
[2018-03-21] MEDS: BRIMONIDINE TARTRATE OPHT SOLN 5 ML BOTTLE EACHEYE SCH ×3 (05:02→21:04)
--- NOTE | 2018-03-21 05:39 | NUR ---
MS RN CLOSING NOTES Patient in bed, resting, easily arousable. On continuous oxygen therapy @2lpm via nasal cannula with no SOB noted. Not in any apparent distress. HOB elevated. No complaints of pain at this moment. Continue on current treatment and medication regime. Safety measures in place. Bed in lowest position with bed alarm on and call light within reach. Will continue to monitor patient and will endorse to oncoming shift nurse.
[2018-03-21] MEDS: INSULIN REGULAR, HUMAN 100 UNIT/ML 3 ML VIAL SQ PRN ×2 (06:49→17:18)
[2018-03-21] MEDS: BLOOD SUGAR DIAGNOSTIC 1 EACH STRIP VI SCH ×4 (06:49→21:57)
--- NOTE | 2018-03-21 07:27 | NUR ---
RN OPENING NOTES RECEIVED PATIENT SLEEPING IN BED, EASILY AROUSABLE, A/O X2-3, MALAY SPEAKING ONLY. NO ACUTE DISTRESS, NO SOB. DENIES ANY PAIN OR DISCOMFORT AT THIS TIME. IV ACCESS PATENT AND INTACT. RCW PERMACATH IN PLACE, DRESSING C/D/I, WILL MONITOR FOR BLEEDING. SAFETY MEASURES IN PLACE, BED IN LOW/LOCKED POSITION, SIDERAILS UP, CALL LIGHT WITHIN EASY REACH. WILL CONTINUE TO MONITOR ACCORDINGLY.
[2018-03-21 07:41] LABS: CALCIUM, SERUM 8.2 mg/dL (8.5-10.1); CREATININE 2.3 mg/dL (0.6-1.3); MAGNESIUM 2.7 mg/dL (1.8-2.4); PHOSPHORUS 2.9 mg/dL (2.5-4.9)
[2018-03-21 08:00] VITALS: BP 142/71
[2018-03-21] MEDS: ASPIRIN 81 MG TAB.CHEW PO SCH (08:33)
[2018-03-21] MEDS: ISOSORBIDE MONONITRATE 20 MG TABLET PO SCH (08:33)
[2018-03-21] MEDS: CHOLECALCIFEROL 1,000 UNIT TABLET (VIT D3) PO SCH (08:33)
[2018-03-21] MEDS: MULTIVIT, IRON, MIN NO. 8, FA 1 TAB PO SCH (08:37)
[2018-03-21] MEDS: METOLAZONE 2.5 MG TABLET PO SCH (08:37)
[2018-03-21] MEDS: MAGNESIUM OXIDE 400 MG TABLET PO SCH ×2 (08:37→17:15)
[2018-03-21] MEDS: TIMOLOL MAL/DORZOLAM HCL OPHTH 10 ML BOTTLE EACHEYE SCH ×2 (08:44→17:16)
[2018-03-21] MEDS: TIMOLOL 0.5% SOLN OPHTH 5 ML BOTTLE EACHEYE SCH ×2 (08:45→17:16)
[2018-03-21] MEDS: POLYVINYL ALCOHOL 15 ML BOTTLE EACHEYE SCH ×3 (08:45→17:15)
[2018-03-21] MEDS: KETOROLAC EYE 0.5% 3 ML BOTTLE EACHEYE SCH ×2 (08:46→20:19)
[2018-03-21] MEDS: DOCUSATE SODIUM 100 MG CAPSULE PO SCH ×2 (09:00→17:15)
[2018-03-21] MEDS: POLYETHYLENE GLYCOL 3350 17 GM POWD.PACK PO SCH (09:00)
[2018-03-21] MEDS: Z GUARD REMEDY 2 OZ OINT TP SCH (09:15)
[2018-03-21] MEDS ORDERED: LEVOFLOXACIN 500 MG /D5W 100ML 500 MG in PREMIX 1 EA IV ONE (12:00)
--- NOTE | 2018-03-21 12:00 | NUR ---
REFUSED ACCUCHECK. EXPLAINED RISK BUT STILL REFUSED
[2018-03-21 16:00] VITALS: BP 157/76
--- NOTE | 2018-03-21 17:30 | NUR ---
RN NOTES BS 189, 3 UNITS INSULIN GIVEN ORDERED PER SLIDING SCALE
--- NOTE | 2018-03-21 19:30 | NUR ---
RN CLOSING NOTES PATIENT IN STABLE CONDITION. ALL NEEDS ATTENDED AND PROVIDED. TURNED AND REPOSITIONED PATIENT EVERY 2HRS NEEDED. RCW PERMACATH DRESSING, C/D/I. KEPT PATIENT SAFE AND COMFORTABLE. BED IN LOW/LOCKED POSITION, SIDERAILS UPX2, HOB ELEVATED, CALL LIGHT IN REACH. ENDORSED TO NIGHT RN FOR SARA.
--- NOTE | 2018-03-21 19:35 | NUR ---
MS RN NOTES Patient received in bed, intermittently awaken, easily arousable and verbally responsive. No excessive bleeding/drainage noted on perma-cath site. HOB elevated. Oxygen therapy @2lpm via nasal cannula with no SOB noted. Safety measures in place. Will continue to monitor and assess patient.
[2018-03-21 20:00] VITALS: BP 139/69
[2018-03-21] MEDS: LATANOPROST EYE DROP 0.005% 2.5 ML BOTTLE EACHEYE SCH (21:04)
[2018-03-21] MEDS: ATORVASTATIN 40 MG TABLET PO SCH (21:05)
[2018-03-21] MEDS: INSULIN GLARGINE, 100 UNIT/ML CARTRIDGE SQ SCH (21:56)
--- NOTE | 2018-03-21 21:57 | NUR ---
MS RN - NON-ADMIN NOTES Brokerage Branch Manager present. Patient refused blood check and insulin. Explained risk vs benefits x3. Offered 3x but patient continue to refuse and stated, "My sugar is fine." (in greek)
--- NOTE | 2018-03-22 03:00 | NUR ---
MS RN NOTES Patient sleepin in bed comfortably, easily arousable. On continuous oxygen therapy with no SOB noted. Not in apparent distress. Safety measures in place. Bed in lowest position with bed alarm on and Call light within reach. Will continue to monitor patient
[2018-03-22] MEDS: BRIMONIDINE TARTRATE OPHT SOLN 5 ML BOTTLE EACHEYE SCH ×2 (04:44→14:00)
[2018-03-22] MEDS: hydrALAZINE HCL 25 MG TABLET PO SCH ×2 (04:44→13:55)
[2018-03-22] MEDS: BLOOD SUGAR DIAGNOSTIC 1 EACH STRIP VI SCH ×3 (06:35→17:15)
[2018-03-22] MEDS: INSULIN REGULAR, HUMAN 100 UNIT/ML 3 ML VIAL SQ PRN ×3 (06:38→17:16)
--- NOTE | 2018-03-22 06:41 | NUR ---
MS RN NOTES Patient comfortably in bed, intermittently awaken, easily arousable and verbally responsive. No excessive bleeding/drainage noted on perma-cath site. HOB elevated. Oxygen therapy @2lpm via nasal cannula with no SOB noted. Blood sugar 142 with 2units of Humilin R given per sliding scale. Labs drawn. Continue on strict I&O and fluid restriction of 1200cc/24hours. Daily weight: 14.7lbs. LBM: 03/22/2018. Possible discharge - Awaiting for authorization from [facility]. Safety measures in place. Bed in lowest position with bed alarm on and call light within reach. Will endorse to oncoming shift nurse
[2018-03-22 07:03] LABS: BASOPHILS % (AUTO) 0.1 % (0.0-2.0); EOSINOPHILS % (AUTO) 2.7 % (0.0-6.0); HEMATOCRIT 24 % (39-51); HEMOGLOBIN 7.7 g/dL (13.5-17.5); LYMPHOCYTES # (AUTO) 0.7 /CMM (0.8-4.8); LYMPHOCYTES % (AUTO) 10.9 % (20.0-44.0); MEAN CORPUSCULAR HGB CONC 32 g/dl (31.0-36.0); MEAN CORPUSCULAR VOLUME 99 fL (80-96); MONOCYTES # (AUTO) 0.7 /CMM (0.1-1.30); MONOCYTES % (AUTO) 10.9 % (2.0-12.0); NEUTROPHILS # (AUTO) 4.7 /CMM (1.8-8.9); NEUTROPHILS % (AUTO) 75.4 % (43.0-81.0); PLATELET COUNT (AUTO) 65 /CMM (150-450); RED BLOOD CELL COUNT(AUTO) 2.39 MIL/uL (4.5-6.0); WHITE BLOOD COUNT (AUTO) 6.3 K/uL (4.3-11.0)
--- NOTE | 2018-03-22 07:15 | NUR ---
RN OPENING NOTES PT IN BED, AWAKE, ALERT AND ORIENTED X 2-3, NO SOB NOTED, BREATHING EVEN AND UNLABORED AND IN NO ACUTE DISTRESS, DENIES ANY PAIN OR DISCOMFORT. IV ACCESS PATENT AND INTACT, ALL DUE MEDS GIVEN ORDERED, NO ASE NOTED, ALL PATIENT'S ATTENDED . PLACED CALL LIGHT WITHIN EASY REACH. BED IN LOW POSITION AND LOCKED IN PLACE. WILL CONTINUE TO MONITOR
[2018-03-22 07:28] LABS: CREATININE 2.5 mg/dL (0.6-1.3); MAGNESIUM 2.8 mg/dL (1.8-2.4); PHOSPHORUS 3.3 mg/dL (2.5-4.9); POTASSIUM 4.2 mmol/L (3.5-5.1)
[2018-03-22 08:00] VITALS: BP 143/71
[2018-03-22] MEDS: MAGNESIUM OXIDE 400 MG TABLET PO SCH (09:00)
[2018-03-22] MEDS: MULTIVIT, IRON, MIN NO. 8, FA 1 TAB PO SCH (09:08)
[2018-03-22] MEDS: CHOLECALCIFEROL 1,000 UNIT TABLET (VIT D3) PO SCH (09:08)
[2018-03-22] MEDS: ASPIRIN 81 MG TAB.CHEW PO SCH (09:08)
[2018-03-22] MEDS: DOCUSATE SODIUM 100 MG CAPSULE PO SCH ×2 (09:08→17:09)
[2018-03-22] MEDS: METOLAZONE 2.5 MG TABLET PO SCH (09:08)
[2018-03-22] MEDS: ISOSORBIDE MONONITRATE 20 MG TABLET PO SCH (09:08)
[2018-03-22] MEDS: POLYETHYLENE GLYCOL 3350 17 GM POWD.PACK PO SCH (09:10)
[2018-03-22] MEDS: Z GUARD REMEDY 2 OZ OINT TP SCH (09:12)
[2018-03-22] MEDS: TIMOLOL 0.5% SOLN OPHTH 5 ML BOTTLE EACHEYE SCH ×2 (09:15→17:10)
[2018-03-22] MEDS: POLYVINYL ALCOHOL 15 ML BOTTLE EACHEYE SCH ×3 (09:15→17:09)
[2018-03-22] MEDS: TIMOLOL MAL/DORZOLAM HCL OPHTH 10 ML BOTTLE EACHEYE SCH ×2 (09:15→17:10)
[2018-03-22] MEDS: KETOROLAC EYE 0.5% 3 ML BOTTLE EACHEYE SCH (09:16)
[2018-03-22 10:21] LABS: EOSINOPHILS % (MANUAL) 3 % (0-4); LYMPHOCYTES % (MANUAL) 11 % (16-48); MONOCYTES % (MANUAL) 4 % (0-11.0); NEUTROPHILS % (MANUAL) 82 (42-76)
[2018-03-22] MEDS ORDERED: LEVOFLOXACIN 250 MG /D5W 50 ML 250 MG in PREMIX 1 EA IV SCH (12:00)
[2018-03-22 12:19] LABS: CALCITRIOL VIT D,1, 25 DIHYDRO 6.1 pg/mL (19.9-79.3)
[2018-03-22 16:00] VITALS: BP 176/86
--- NOTE | 2018-03-22 16:30 | NUR ---
RN NOTES DC BP 165/90 EMT UNABLE TO TRANSPORT PT, FACILITY RN STATING SBP SHOULD BE LESS THAN 160,NOTIFIED DR. JUNIOR WILL CARRY OUT ORDERS AND CALL FOR TRANSPORT WHEN BP IS < 160,
[2018-03-22] MEDS ORDERED: CLONIDINE HCL 0.1 MG TABLET PO ONE (17:00)
[2018-03-22 17:12] VITALS: BP 165/90
--- NOTE | 2018-03-22 18:47 | NUR ---
RN CLOSING NOTES PT IN BED, AWAKE, ALERT AND ORIENTED X 2-3, NO SOB NOTED, BREATHING EVEN AND UNLABORED AND IN NO ACUTE DISTRESS, DENIES ANY PAIN OR DISCOMFORT. IV ACCESS PATENT AND INTACT, ALL DUE MEDS GIVEN ORDERED, NO ASE NOTED, ALL PATIENT'S NEEDS ATTENDED . PLACED CALL LIGHT WITHIN EASY REACH. BED IN LOW POSITION AND LOCKED IN PLACE. WILL CONTINUE TO MONITOR AND ENDORSE TO NEXT SHIFT FOR CONTINUITY OF CARE
--- NOTE | 2018-03-22 18:50 | NUR ---
RN NOTES CALLED EMT FOR TRANSPORT TRIP # [id number] FUR COAT SEWER AT [id number]
--- NOTE | 2018-03-22 19:43 | NUR ---
RN NOTES DC PT PICKED UP BY TRANSPORT, REPORT GIVEN ALL DC PAPER WORK COMPLETED AND PICTURES TAKEN, ALL BELONGINGS ACCOUNTED FOR PT DISCHARGED IN STABLE CONDITION
== END 2018-03-22 20:00 | DRG 280 ==
LOC: ER 12:45 → TELE 14:51 → MED 03-11 08:27
PROVIDERS: ADMIT Registered Nurse; ATTEND Registered Nurse
PROC: 02HV33Z Insertion of Infusion Device into Superior Vena Cava, Percutaneous Approach (ICD-10-PCS; 2018-03-16)
PROC: B518YZA Fluoroscopy of Superior Vena Cava using Other Contrast, Guidance (ICD-10-PCS; 2018-03-16)
PROC: 5A1D70Z Performance of Urinary Filtration, Intermittent, Less than 6 Hours Per Day (ICD-10-PCS; 2018-03-16)
PROC: 0JH63XZ Insertion of Tunneled Vascular Access Device into Chest Subcutaneous Tissue and Fascia, Percutaneous Approach (ICD-10-PCS; principal; 2018-03-16 14:56)
PROC: 5A1D70Z Performance of Urinary Filtration, Intermittent, Less than 6 Hours Per Day (ICD-10-PCS; 2018-03-17)
PROC: 5A1D70Z Performance of Urinary Filtration, Intermittent, Less than 6 Hours Per Day (ICD-10-PCS; 2018-03-20)
DX: I13.2 Hypertensive heart and chronic kidney disease with heart failure and with stage 5 chronic kidney disease, or end stage renal disease (principal); I50.23 Acute on chronic systolic (congestive) heart failure; I21.A1 Myocardial infarction type 2; N18.6 End stage renal disease; N39.0 Urinary tract infection, site not specified; N17.9 Acute kidney failure, unspecified; J90 Pleural effusion, not elsewhere classified; E11.22 Type 2 diabetes mellitus with diabetic chronic kidney disease; E11.51 Type 2 diabetes mellitus with diabetic peripheral angiopathy without gangrene; D64.9 Anemia, unspecified; E78.5 Hyperlipidemia, unspecified; E87.5 Hyperkalemia; I27.20 Pulmonary hypertension, unspecified; Z89.512 Acquired absence of left leg below knee; Z90.49 Acquired absence of other specified parts of digestive tract; F03.90 Unspecified dementia, unspecified severity, without behavioral disturbance, psychotic disturbance, mood disturbance, and anxiety; B96.5 Pseudomonas (aeruginosa) (mallei) (pseudomallei) as the cause of diseases classified elsewhere; R00.1 Bradycardia, unspecified; R74.8 Abnormal levels of other serum enzymes; E11.65 Type 2 diabetes mellitus with hyperglycemia; I34.0 Nonrheumatic mitral (valve) insufficiency; H54.7 Unspecified visual loss; Z66 Do not resuscitate; E83.9 Disorder of mineral metabolism, unspecified
CPT/HCPCS: 36415; 71045-TC; 76770-TC; 80048-TC; 80053-TC; 80076-TC; 81000-TC; 82306; 82570-TC; 82652; 82728-TC; 82962-TC; 83540-TC; 83735-TC; 83880; 83970; 84100-TC; 84155-TC; 84300-TC; 84484-TC; 85025-TC; 85730-TC; 86704; 86705; 86706; 86803; 87081-TC; 87086-TC; 87186-TC; 87340; 90935-TC; 93971-TC; A4216; A4606; A6402; A6403; C1750; J0690; J0696; J0885; J1644; J1815; J1940; J1956; J2704; J3010; J3490; J7060; Z7610

== ENCOUNTER 2018-09-19 09:34 | Inpatient (IN) | payer MEDICARE, MEDICAID ==
[~2018-09-19] VITALS: Ht 157.5 cm; Wt 55.8 kg
[~2018-09-19 09:34] MED LIST changes: +BROM1.7D9 EACHEYE; -FURO-144 PO; +HYDR-4076 PO; -HYDR-4077 PO; +INSU100V3 SQ; -LOPE2TAB25 PO; -LOSA25TA13 PO; +LOSA25TA27 PO; -MAG30ORA PO; -MAGN400O6 PO; +TIMO5DRO35 EACHEYE
--- NOTE | 2018-09-19 09:48 | NUR ---
PT BROUGHT IN FOR DIALYSIS X 5 MINUTES FOR AMS BY STAFF PARAMEDICS BROUGHT PT IN PIV ESTABLISHED LABS , BLLOD CULTURES AND LACTIC ACID DRAWN AND SENT FOR PROCESSING POCT GLUCOSE 152. PT SPEAKING COMORAN REPEATING SAME WORDS RESPONDS TO PAIN WHEN STUCK FOR GLUCOSE.PT HAS QUITIN CATH IN [facility]
[2018-09-19 10:08] LABS: BASOPHILS # (AUTO) 0.1 /CMM (0.0-0.2); BASOPHILS % (AUTO) 0.5 % (0.0-2.0); EOSINOPHILS % (AUTO) 10.8 % (0.0-6.0); HEMATOCRIT 44 % (39-51); HEMOGLOBIN 13.9 g/dL (13.5-17.5); LYMPHOCYTES # (AUTO) 0.7 /CMM (0.8-4.8); LYMPHOCYTES % (AUTO) 3.9 % (20.0-44.0); MEAN CORPUSCULAR HGB CONC 31 g/dl (31.0-36.0); MEAN CORPUSCULAR VOLUME 102 fL (80-96); MONOCYTES # (AUTO) 0.2 /CMM (0.1-1.30); MONOCYTES % (AUTO) 0.9 % (2.0-12.0); NEUTROPHILS # (AUTO) 14.8 /CMM (1.8-8.9); NEUTROPHILS % (AUTO) 83.9 % (43.0-81.0); PLATELET COUNT (AUTO) 88 /CMM (150-450); RED BLOOD CELL COUNT(AUTO) 4.35 MIL/uL (4.5-6.0); WHITE BLOOD COUNT (AUTO) 17.6 K/uL (4.3-11.0)
[2018-09-19 10:16] LABS: CALCIUM, SERUM 7.8 mg/dL (8.5-10.1); CREATININE 2.5 mg/dL (0.6-1.3); POTASSIUM 3.5 mmol/L (3.5-5.1)
[2018-09-19 10:20] LABS: BAND % (MANUAL) 1 % (0.0-5.0); EOSINOPHILS % (MANUAL) 10 % (0-4); LYMPHOCYTES % (MANUAL) 4 % (16-48); MONOCYTES % (MANUAL) 2 % (0-11.0); NEUTROPHILS % (MANUAL) 83 (42-76)
[2018-09-19 10:21] LABS: ALBUMIN 1.6 g/dL (3.4-5.0); BILIRUBIN,DIRECT 0.3 mg/dL (0.0-0.2); BILIRUBIN,TOTAL 0.6 mg/dL (0.2-1.0); TOTAL PROTEIN, SERUM 5.2 g/dL (6.4-8.2)
[2018-09-19 10:26] LABS: ABG BASE EXCESS -4.3 mmol/L; ABG OXYGEN SATURATION 90.6 % (92.0-98.5); ABG PCO2 40.4 mmHg (35.0-45.0); ABG PH 7.337 (7.350-7.450); ABG PO2 62.5 mmHg (75.0-100.0); AaDO2 147.3 mmHg; MetHb 0.4 % (0.0-1.5); O2Hb 89.3 % (94.0-97.0); SITE, ABG Left Radial; VENT MODE, BG N/C
--- NOTE | 2018-09-19 10:30 | NUR ---
X-RAY DONE PT CLEANED UP FOR MEDIUM BROWN STOOL
--- NOTE | 2018-09-19 10:43 | NUR ---
CALLED ANTIBIOTIC TO BE MADE FROM PHARMACY
[2018-09-19] MEDS ORDERED: CEFEPIME 1 GM in IV D5W 50 ML IV ONE (11:00)
[2018-09-19] MEDS ORDERED: INSU100V11 SQ (11:12)
[2018-09-19] MEDS ORDERED: MELA3TAB PO (11:12)
[2018-09-19] MEDS ORDERED: KETO5DRO83 EACHEYE (11:12)
[2018-09-19] MEDS ORDERED: SEVE800T8 PO (11:12)
[2018-09-19] MEDS ORDERED: ISOS20TA8 PO (11:12)
--- NOTE | 2018-09-19 11:56 | NUR ---
PT CLEANED UP FOR THRID NOW WITH DIARRHEA C-DIFF SAMPLE SENT TO LAB
--- NOTE | 2018-09-19 13:00 | NUR ---
RN REPORT GIVEN TO LIZETH KRSUE FOR 3 WEST PT ADMITTED TO ROOM 308 ADMITTING MD GARCIA.
--- NOTE | 2018-09-19 13:50 | NUR ---
PRESS TOOL MAKERTALENT ACQUISITION DIRECTOR NOTE RECEIVED PATIENT VIA VERONIKA FROM ER. RECEIVED REPORT FROM URIAH CAMPOS. PATIENT IS ALERT AND ORIENTED x3. [place] SPEAKING. PER PATIENT WAS RECEIVING DIALYSIS WHEN PATIENT'S BLOOD RPESSURE DROPPED WAS BROUGHT IN VIA AMBULANCE TO EMERGENCY ROOM. PATIENT IS FULL CODE AT THSI TIME WITH LEFT AC IV INTACT AND PATENT NO REDNESS OR SWELLING NOTED AT THIS TIME, PATIENT HAS SKIN TEAR NEXT TO IV SITE WOUND PICTURE DOCUMENTED. ON 2L/MIN OF OXYGEN VIA NASAL CANNULA TOLERATING WELL. ALL WOUND PICTURES PLACED IN CHART. NO KNOWN DRUG ALLERGIES. HAS RIGHT CHESTWALL HELGA CATHETER FOR DIALYSIS. LEFT BKA. AWAITING FOR MD ORDERS AT THIS TIME. WILL CONTINUE CONTINUITY OF CARE
--- NOTE | 2018-09-19 13:51 | NUR ---
CONSTRUCTION PROJECT MGR NOTE PER MECHANICAL RESEARCH ENGINEER STOOL COLLECTED FOR C.DIFF SAMPLE
[2018-09-19] MEDS ORDERED: Z GUARD REMEDY 2 OZ OINT TP PRN (15:30)
[2018-09-19] MEDS ORDERED: ONDANSETRON HCL/PF 4 MG/2 ML VIAL IVP PRN (15:30)
[2018-09-19] MEDS ORDERED: POLYVINYL ALCOHOL 15 ML BOTTLE EACHEYE PRN (15:30)
[2018-09-19] MEDS ORDERED: ACETAMINOPHEN 325 MG TABLET PO PRN (15:30)
[2018-09-19] MEDS ORDERED: DICYCLOMINE HCL 10 MG CAPSULE PO PRN (15:30)
[2018-09-19] MEDS: BRIMONIDINE TARTRATE OPHT SOLN 5 ML BOTTLE OP SCH ×2 (16:00→21:00)
[2018-09-19] MEDS ORDERED: DEXTROSE 50%-WATER 50 ML DISP.SYRIN IV PRN (16:00)
[2018-09-19] MEDS ORDERED: INSULIN REGULAR, HUMAN 100 UNIT/ML 3 ML VIAL SQ PRN (16:00)
[2018-09-19 16:29] VITALS: BP 110/54
[2018-09-19] MEDS: DOCUSATE SODIUM 100 MG CAPSULE PO SCH (17:00)
[2018-09-19] MEDS: TIMOLOL MAL/DORZOLAM HCL OPHTH 10 ML BOTTLE EACHEYE SCH (17:00)
[2018-09-19] MEDS: BLOOD SUGAR DIAGNOSTIC 1 EACH STRIP IN SCH ×2 (17:17→22:40)
[2018-09-19] MEDS: VANCOMYCIN HCL 125 MG/2.5 ML ORAL.SUSP PO SCH ×2 (17:17→23:38)
[2018-09-19] MEDS: SEVELAMER CARBONATE 800 MG TABLET PO SCH (17:17)
--- NOTE | 2018-09-19 17:17 | NUR ---
PILE DRIVING SUPERINTENDENT NOTE PATIENT REFUSING MEDICATIONS AT THIS TIME.
[2018-09-19] MEDS ORDERED: diphenhydrAMINE HCL 50 MG CAPSULE PO PRN (18:30)
--- NOTE | 2018-09-19 18:30 | NUR ---
FIELD CROP FARMER NOTE NOTIFIED DR GARCIA ABOUT PATIENT STATING HE IS ITCHING ALL ROUND HIS BODY. PATIENT'S MENTIONED THAT PATIENT WAS ON ISOLATION PREVIOUSLY AND HAD CREAM APPLIED TO HIS BODY NOT LONG AGO. INFORMED MD. ORDERS FOR BENADRYL 50 MG PO Q6H PRN, LIDEX CREAM QID, & IVERMECTIN 12MG PO x1. ORDERS NOTED AND CARRIED OUT
--- NOTE | 2018-09-19 18:34 | NUR ---
ACCOUNT RESOLUTION ANALYST CLOSING NOTE PATIENT IN BED AT THIS TIME RESTING COMFORTABLY WITH NO S/S OF DISTRESS OR SOB NOTED ON 2L/MIN OF OXYGEN VIA NASAL CANNULA TOLERATING WELL. NO FACIAL GRIMACING NOTED FOR PAIN NOTED. ABLE TO COMMUNICATE NEEDS. PATIENT REFUSED AFTERNOON MEDICATIONS. RECEIVED ORDERS FROM MD WHICH WERE NOTED AND CARRIED OUT FOR LIDEX CREAM,BENADRYL AND IVERMECTIN. TELE NSR-70S.RENAL DIET. PATIENT REFUSED TO HAVE BLOOD SUGAR DONE. LABS IN AM. CALL LIGHT WITHIN REACH AT ALL TIMES. WILL ENDORSE TO AIR CONTROL/ANTI AIR WARFARE OFFICER NURSE FOR SARA
[2018-09-19] MEDS ORDERED: IVERMECTIN 3 MG TABLET PO ONE (19:30)
--- NOTE | 2018-09-19 19:50 | NUR ---
TELERN AWAKE PASHTO SPEAKING ONLY. HISTOPATHOLOGIST AT BEDSIDE. NO NEEDS OF THIS TIME. CONTINUED.
[2018-09-19 20:00] VITALS: BP 136/64
--- NOTE | 2018-09-19 21:24 | NUR ---
TELERN CRITICAL RESULT OF PROCALCITONIN WAS 2.2, INFORMED DR. JARVIS. NO NEW ORDER.
[2018-09-19] MEDS ORDERED: ATORVASTATIN 40 MG TABLET PO SCH (22:00)
[2018-09-19] MEDS ORDERED: LATANOPROST EYE DROP 0.005% 2.5 ML BOTTLE EACHEYE SCH (22:00)
[2018-09-19] MEDS ORDERED: INSULIN GLARGINE, 100 UNIT/ML CARTRIDGE SQ SCH (22:00)
[2018-09-19] MEDS: hydrALAZINE HCL 25 MG TABLET PO SCH (22:25)
[2018-09-19] MEDS: FLUOCINONIDE 0.05% CREAM 60 GM TUBE TP SCH (22:29)
[2018-09-19] MEDS: CARVEDILOL 12.5 MG TABLET PO SCH (22:29)
--- NOTE | 2018-09-19 22:30 | NUR ---
TELERN VERBALIZES GEN PAIN PER CATALOGUE AND SPECIAL PRODUCTS MANAGER, TYLENOL 650 MG PO ADMINISTERED. IVERMECTIN NOT AVAILABLE AT THIS TIME. BS WA 158, 2 UNITS REGULAR INSULIN SQ GIVEN PER SLIDING SCALE. LANTUS 10 UNITS ADMINISTERED ORDERED. SNACKS PROVIDED, ASSISTED, ENCOURAGE PO INTAKE. FLUIDS RESTRICTED. OTHER EYEDROP N/A.
[2018-09-19] MEDS ORDERED: INSULIN REGULAR, HUMAN 100 UNIT/ML 3 ML VIAL ONE (23:17)
[2018-09-19] MEDS ORDERED: LATANOPROST EYE DROP 0.005% 2.5 ML BOTTLE ONE (23:18)
[2018-09-20] VITALS: BP 101/50
--- NOTE | 2018-09-20 00:12 | NUR ---
telern sleeps on/off. refused to take vanco po.
[2018-09-20 04:00] VITALS: BP 103/57
[2018-09-20] MEDS: BRIMONIDINE TARTRATE OPHT SOLN 5 ML BOTTLE OP SCH ×2 (05:00→13:59)
[2018-09-20] MEDS: hydrALAZINE HCL 25 MG TABLET PO SCH ×2 (05:00→13:00)
[2018-09-20] MEDS: VANCOMYCIN HCL 125 MG/2.5 ML ORAL.SUSP PO SCH ×3 (06:00→17:58)
[2018-09-20 06:23] LABS: BASOPHILS # (AUTO) 0.1 /CMM (0.0-0.2); BASOPHILS % (AUTO) 0.6 % (0.0-2.0); EOSINOPHILS % (AUTO) 23.2 % (0.0-6.0); HEMATOCRIT 33 % (39-51); HEMOGLOBIN 10.4 g/dL (13.5-17.5); LYMPHOCYTES # (AUTO) 0.9 /CMM (0.8-4.8); LYMPHOCYTES % (AUTO) 5.3 % (20.0-44.0); MEAN CORPUSCULAR HGB CONC 32 g/dl (31.0-36.0); MEAN CORPUSCULAR VOLUME 102 fL (80-96); MONOCYTES # (AUTO) 0.6 /CMM (0.1-1.30); MONOCYTES % (AUTO) 3.8 % (2.0-12.0); NEUTROPHILS % (AUTO) 67.1 % (43.0-81.0); PLATELET COUNT (AUTO) 99 /CMM (150-450); RED BLOOD CELL COUNT(AUTO) 3.22 MIL/uL (4.5-6.0); WHITE BLOOD COUNT (AUTO) 16.4 K/uL (4.3-11.0)
--- NOTE | 2018-09-20 06:30 | NUR ---
TELERN RECEIVED CALL FROM LAB, CRITICAL VALUE, GLUCOSE 46.
--- NOTE | 2018-09-20 06:45 | NUR ---
TELERN IV SITE LEAKING RESTARTED 22 GAUGE RIGHT AC WITH GOOD BLOOD RETURN D 50% ADMINISTERED.
[2018-09-20 06:48] LABS: ALBUMIN 1.7 g/dL (3.4-5.0); BILIRUBIN,TOTAL 0.6 mg/dL (0.2-1.0); CALCIUM, SERUM 7.9 mg/dL (8.5-10.1); CREATININE 3.3 mg/dL (0.6-1.3); PHOSPHORUS 3.5 mg/dL (2.5-4.9); POTASSIUM 3.8 mmol/L (3.5-5.1); TOTAL PROTEIN, SERUM 5.5 g/dL (6.4-8.2)
[2018-09-20 06:51] LABS: THYROID STIMULATING HORMONE 2.844 uIU/mL (0.358-3.74)
--- NOTE | 2018-09-20 07:15 | NUR ---
TELERN ENDORSED TO INCOMING RN FOR CONTINUITY OF CARE.
--- NOTE | 2018-09-20 07:30 | NUR ---
BOBBIN CLEANER NOTES PT IN BED, ASLEEP, EASY TO AROUSE, ALERT AND ORIENTED, NO COMPLAINT OF PAIN AT THIS TIME, BREATHING PATTERN NORMAL, CALL LIGHT WITHIN REACH, KEPT WARM AND COMFORTABLE.
[2018-09-20 08:00] VITALS: BP 86/41
[2018-09-20] MEDS: BLOOD SUGAR DIAGNOSTIC 1 EACH STRIP IN SCH ×3 (08:08→17:55)
[2018-09-20] MEDS: DOCUSATE SODIUM 100 MG CAPSULE PO SCH ×2 (08:42→16:44)
[2018-09-20] MEDS: SEVELAMER CARBONATE 800 MG TABLET PO SCH ×3 (08:42→17:58)
[2018-09-20] MEDS ORDERED: CHOLECALCIFEROL 1,000 UNIT TABLET (VIT D3) PO SCH (09:00)
[2018-09-20] MEDS ORDERED: LOSARTAN POTASSIUM 25 MG TABLET PO SCH (09:00)
[2018-09-20] MEDS: CARVEDILOL 12.5 MG TABLET PO SCH (09:00)
[2018-09-20] MEDS ORDERED: ISOSORBIDE DINITRATE (20MG) 20 MG TABLET PO SCH (09:00)
[2018-09-20] MEDS ORDERED: ASPIRIN 81 MG TAB.CHEW PO SCH (09:00)
[2018-09-20] MEDS: TIMOLOL MAL/DORZOLAM HCL OPHTH 10 ML BOTTLE EACHEYE SCH ×2 (09:33→16:46)
[2018-09-20] MEDS: FLUOCINONIDE 0.05% CREAM 60 GM TUBE TP SCH ×3 (09:34→16:56)
[2018-09-20] MEDS ORDERED: CEFEPIME 1 GM in IV D5W 50 ML IV SCH (11:00)
[2018-09-20 12:00] VITALS: BP 110/53
--- NOTE | 2018-09-20 13:00 | NUR ---
EXEC. CREATIVE DIRECTOR NOTES PT IN BED, SLEEPS INTERMITTENLTY, NO SIGN OF PAIN OR DISTRESS, ASSISTED WITH MEALS, SEEN BY DR. DUNN, DIALYSIS ORDERED FOR TODAY.
[2018-09-20 16:00] VITALS: BP 114/58
[2018-09-20] MEDS ORDERED: LACTOBACILLUS RHAMNOSUS GG 1 EACH CAP.SPRINK PO SCH (17:00)
--- NOTE | 2018-09-20 17:30 | NUR ---
RN MS NOTES INSULIN NOT ADMINISTERED, PT ATE ONLY 25% OF HIS DINNER, EPISODE OF HYPOGLYCEMIA THIS MORNING.
--- NOTE | 2018-09-20 18:44 | NUR ---
HEALTH SCIENCE WRITER NOTES PT IN BED, AWAKE, ALERT AND VERBALLY RESPONSIVE, NEEDS ATTENDED IN A TIMELY MANNER AT ALL TIMES, TURNED AND REPOSITIONED Q2 HOURS, ASSISTED WITH MEALS, KEPT CLEAN AND DRY, SCHEDULED MEDS GIVEN ORDERED, ALL NEEDS ATTENDED.
[2018-09-20] MEDS ORDERED: FEE PK DOSING 1 MIN EA MC ONE ×2 (18:53→21:19)
[2018-09-20] MEDS ORDERED: VANCOMYCIN 500 MG in IV D5W 100 ML IV PRN (19:00)
--- NOTE | 2018-09-20 19:28 | NUR ---
BANKING SERVICES ADVISOR NOTES RECEIVED PATIENT IN BED AWAKE, ALERT AND ORIENTED X3, VERBALLY RESPONSIVE, ABLE TO MAKE NEEDS KNOWN. TRISTANIAN SPEAKER. BREATHING EVEN AND UNLABORED. NO SOB NOTED. TOLERATING ROOM AIR. NO S/S OF PAIN OR DISCOMFORT. NO FACIAL GRIMACING. IV ON RIGHT HAND #22 INTACT AND PATENT. SKIN DRY AND WARM TO TOUCH. AFEBRILE. ALL OTHER NEEDS ATTENDED TO. SAFETY MEASURES IN PLACE. CALL LIGHT WITHIN REACH. WILL CONTINUE TO MONITOR.
[2018-09-20] MEDS ORDERED: VANCOMYCIN 1 GM in IV D5W 250 ML IV ONE (20:00)
[2018-09-20] MEDS ORDERED: ALBUMIN IV PRN (20:30)
[2018-09-20] MEDS ORDERED: ALBUMIN 25% 12.5 GM in PREMIX 1 EA IV PRN (20:30)
[2018-09-20] MEDS ORDERED: ALBUMIN 25% 100 ML IV ONE (20:51)
--- NOTE | 2018-09-20 20:52 | NUR ---
AT 2051, DURING DIALYSIS, PATIENT'S HEART RATE WAS 39. PATIENT WAS LETHARGIC AND UNRESPONSIVE. COLOR WAS PALE, SKIN WAS COLD AND CLAMMY. UNABLE TO OBTAIN BLOOD PRESSURE AND O2SAT. TEMP WAS 97.0F AND RR 6. [facility] RESPONSE WAS CALLED. PATIENT THEN DID NOT HAVE RESPIRATIONS/CHEST RISE. CPR INITIATED. PATSY TELLEZ WAS CALLED.
--- NOTE | 2018-09-20 21:00 | NUR ---
@ 2100 SONJAN, WAS CONTACTED BY URIAH ESPINAL AND MADE AWARE OF CONDITION.
[2018-09-20] MEDS ORDERED: EPINEPHRINE (1:10,000) SYRINGE 1 MG/10 ML DISP.SYRIN ONE (21:15)
[2018-09-20] MEDS ORDERED: EPINEPHRINE (1:10,000) SYRINGE 1 MG/10 ML DISP.SYRIN IV ONE (21:15)
[2018-09-20] MEDS ORDERED: ATROPINE SULFATE 1 MG/10 ML DISP.SYRIN IV ONE (21:19)
[2018-09-20] MEDS ORDERED: CALCIUM CHLORIDE 1,000 MG/10 ML DISP.SYRIN IV ONE (21:19)
[2018-09-20] MEDS ORDERED: Sodium Bicarbonate 50 MEQ/50 ML VIAL IV ONE (21:19)
[2018-09-20] MEDS ORDERED: EPINEPHRINE (1:10,000) SYRINGE 1 MG/10 ML DISP.SYRIN IVP ONE (21:19)
--- NOTE | 2018-09-20 23:44 | NUR ---
RT NOTES LATE ENTRY: [facility] RESPONSE WAS CALLED, UPON ARRIVAL DIALYSIS AT BEDSIDE, RN AND AIR POLLUTION ENGINEER AT BEDSIDE. PT UNRESPONSIVE AND CHECKED FOR PULSE, NO PULSE AND NO CHEST RISE. CODE BLUE AT 2055 RT AT BEDSIDE STARTED CPR AND BAGGING THE PT. ER DR GARCIA AND DR NELSON AT BEDSIDE RUNNING THE CODE. PT INTUBATED WITH 7.5 ETT WAS NOT SUCCESSFUL. 2ND INTUBATION WAS SUCCESSFUL, 7.0 ETT GOOD COLOR CHANGE ON CO2 DETECTOR BILAT CHEST RISE EQUAL BREATH SOUND CONFIRMED BY DR GARCIA. CODE CONTINUED. @[address] NELSON CONFIRMED.
--- NOTE | 2018-09-21 | NUR ---
AT 00:00, PATIENT WAS TAKEN TO THE [facility] [place].
== END 2018-09-20 21:20 | disposition expired | DRG 314 ==
LOC: ER 09:36 → TELE 13:23
PROVIDERS: ADMIT Nurse Practitioner Acute Care; ATTEND Nurse Practitioner Acute Care
PROC: 5A12012 Performance of Cardiac Output, Single, Manual (ICD-10-PCS; principal; 2018-09-20)
PROC: 5A1D70Z Performance of Urinary Filtration, Intermittent, Less than 6 Hours Per Day (ICD-10-PCS; 2018-09-20)
DX: T80.211A Bloodstream infection due to central venous catheter, initial encounter (principal); A41.9 Sepsis, unspecified organism; J96.01 Acute respiratory failure with hypoxia; N18.6 End stage renal disease; I13.2 Hypertensive heart and chronic kidney disease with heart failure and with stage 5 chronic kidney disease, or end stage renal disease; I50.42 Chronic combined systolic (congestive) and diastolic (congestive) heart failure; J90 Pleural effusion, not elsewhere classified; Z99.2 Dependence on renal dialysis; D72.829 Elevated white blood cell count, unspecified; D69.6 Thrombocytopenia, unspecified; N40.0 Benign prostatic hyperplasia without lower urinary tract symptoms; E11.22 Type 2 diabetes mellitus with diabetic chronic kidney disease; E11.51 Type 2 diabetes mellitus with diabetic peripheral angiopathy without gangrene; Z87.440 Personal history of urinary (tract) infections; I25.2 Old myocardial infarction; I25.10 Atherosclerotic heart disease of native coronary artery without angina pectoris; D63.8 Anemia in other chronic diseases classified elsewhere; I27.20 Pulmonary hypertension, unspecified; F03.90 Unspecified dementia, unspecified severity, without behavioral disturbance, psychotic disturbance, mood disturbance, and anxiety; Z89.512 Acquired absence of left leg below knee; H40.9 Unspecified glaucoma; Z90.49 Acquired absence of other specified parts of digestive tract; I46.9 Cardiac arrest, cause unspecified; H54.7 Unspecified visual loss; E88.09 Other disorders of plasma-protein metabolism, not elsewhere classified; B95.2 Enterococcus as the cause of diseases classified elsewhere; Y92.129 Unspecified place in nursing home as the place of occurrence of the external cause
CPT/HCPCS: 36415; 36600; 71045-TC; 80048-TC; 80053-TC; 80061-TC; 80076-TC; 82962-TC; 83690-TC; 83735-TC; 83880; 84100-TC; 84443-TC; 84484-TC; 85025-TC; 85730-TC; 87040-TC; 87081-TC; 87186-TC; 90935-TC; 92950-TC; G0378; J0171; J0461; J0692; J1815; J3370; J3490; J7050; J7060; P9047; Q0163